=== PATIENT | female | born 1960 | race Caucasian/White ===

== ENCOUNTER 2023-07-07 16:29 | Outpatient (RCR) | payer BC, SELFPAY | END 2023-07-21 17:18 | disposition home or self-care (01) | LOC: PT 16:29 | PROVIDERS: PCP Family Medicine; Visit Provider Nurse Practitioner Family | DX: M48.062 Spinal stenosis, lumbar region with neurogenic claudication (principal) | CPT/HCPCS: 97012; 97110; 97163 ==

== ENCOUNTER 2023-07-13 13:00 | Outpatient (OUT) | payer BC, SELFPAY ==
--- NOTE | 2023-07-13 15:59 | PM.CN ---
Consult Note: HPI Data of Consult Patient: new to practice Consult date: 07/13/23 Requesting Physician: Nancy Barrera MD Primary Care Provider: ANA CHOI Consult Narrative Reason for consult: neck, low back, bilateral lower extremity, left knee pain Narrative: 62yof who presents for evaluation. worsening pain in multiple areas, including neck, low back, bilateral legs, left knee. lumbar imaging was reviewed, which is significant for multiple levels of stenosis, worst at l4-5 and l5-s1. has had left knee injections that have helped previously, has been told she needs this replaced. also notes increasing neck and bilateral hand pain. engages in provider directed home exercise course >6 weeks >3x/week, with minimal benefit. uses tylenol and ibuprofen as needed. cc:: CC: Nancy Barrera MD Review of Systems ROS Status of ROS 10 or more systems reviewed and unremarkable except as noted in history and below Exam Narrative Exam Narrative: Psych-alert and oriented x 3. Attentive and appropriate, constitutionally normal, displays normal mood and affect per situation. There are no obvious deficits in memory, reasoning, or intellect.? Skin-no obvious rashes, bruising, erythema noted to the patient's area of pain.? Extremities- extremities are warm with minimal edema and palpable pulses. Cervical- tenderness to palpation noted in the cervical spine and paraspinal musculature.? Pain is elicited with extension, and lateral rotation of the cervical spine.? Range of motion is slightly diminished due to pain. Facet loading maneuvers are positive bilaterally. Lumbar-tenderness to palpation noted in the lumbar spine and paraspinal musculature. Pain is elicited with flexion, extension, and lateral rotation of the lumbar spine. Range of motion is diminished with these motions. Facet loading maneuvers are positive.? Strength-noted to be unremarkable with the exception of decreased strength rated at 4 out of 5 in bilateral quadriceps femoris, anterior tibialis. Sensory-no notable sensory deficits in the bilateral lower extremities to touch or pinprick in all dermatomal distributions with the exception to decreased sensation to the bilateral l4, 5 dermatomal distribution Coordination remains intact.? Gait remains non-antalgic. Assessment and Plan Assessment and Plan (1) Lumbar stenosis with neurogenic claudication: (2) Lumbar spondylosis: (3) Left knee pain: (4) Cervicalgia: Plan 62yof who presents for evaluation. failed conservative measures, as noted. imaging reviewed, as noted. in terms of back and leg pain, prudent to attempt bilateral l4-5 tfesi under fluoroscopic guidance. depending on response, may benefit from bilateral l5-s1 tfesi under fluoroscopic guidance. she is in agreement. in terms of left knee pain, will have her undergo left knee xr and return for in office left knee injection, which has provided >3 months of >50% relief previously. she is in agreement. in terms of neck pain, will order cervical XR. meds reviewed. will order ibuprofen 800mg tid prn, which has helped historically. PDMP reviewed. follow up after procedure.
== END 2023-07-13 13:01 | disposition home or self-care (01) ==
LOC: PM 13:13
PROVIDERS: PCP Family Medicine; Visit Provider Anesthesiology
DX: M54.2 Cervicalgia (principal); M25.562 Pain in left knee; M47.816 Spondylosis without myelopathy or radiculopathy, lumbar region; M48.062 Spinal stenosis, lumbar region with neurogenic claudication; M47.812 Spondylosis without myelopathy or radiculopathy, cervical region
CPT/HCPCS: 72050; 73564; G0463

== ENCOUNTER 2023-07-13 14:11 | Outpatient (OUT) | payer BC, SELFPAY ==
--- NOTE | 2023-07-13 14:17 | XR_ITS ---
The [address] [address] Patient Name: ANALIA SANCHEZ MRN: [id number] date: 1960 Sex: F Assigned Patient Location: [facility] Current Patient Location: [facility] Accession/Order Number: [id number] Exam Date: 07/13/2023 14:25 Report Date: 07/14/2023 07:25 At the request of: MONI JANG Procedure: XR cervical spine 5V EXAM: XR cervical spine 5V HISTORY: Neck Pain COMPARISON: None. TECHNIQUE: Routine views of the XR cervical spine 5V FINDINGS: Anatomy: There are 7 nyf-[id number]-[id number] cervical segments. Bones: No acute fracture or dislocation. No suspicious lytic or sclerotic lesion. Moderate to severe C3-C6 disc and endplate degeneration. Mild multilevel facet hypertrophy. Suggested bilateral C3-C5 neural foraminal narrowing. Normal atlantoaxial alignment. Other: Left carotid atherosclerosis. XR/XR cervical spine 5V IMPRESSION: Multilevel cervical spondylosis without acute findings. Electronically authenticated by: SALEEM DOYLE Date: 07/14/2023 07:25
--- NOTE | 2023-07-13 14:17 | XR_ITS ---
The [address] [address] Patient Name: ANALIA SANCHEZ MRN: [id number] date: 1960 Sex: F Assigned Patient Location: [facility] Current Patient Location: [facility] Accession/Order Number: [id number] Exam Date: 07/13/2023 14:25 Report Date: 07/13/2023 18:26 At the request of: MONI JANG Procedure: XR knee LT 4V EXAM: Left knee. HISTORY: . Knee Pain . COMPARISON: None. TECHNIQUE: 4 views FINDINGS: No fracture or dislocation of the left knee is noted. There is narrowing of the medial joint compartment. Hypertrophic spurs are noted involving the knee joint as well as the patellofemoral joint. No joint effusion is noted. XR/XR knee LT 4V IMPRESSION: Mild to moderate osteoarthritic changes of the left knee. Electronically authenticated by: DARIAN UREÑA Date: 07/13/2023 18:26
== END 2023-07-13 14:12 | disposition home or self-care (01) ==
LOC: RAD 14:12
PROVIDERS: PCP Family Medicine; Visit Provider Anesthesiology
DX: M54.2 Cervicalgia (principal); M25.562 Pain in left knee; M47.812 Spondylosis without myelopathy or radiculopathy, cervical region
CPT/HCPCS: 72050; 73564

== ENCOUNTER 2023-08-10 08:53 | Day surgery (SDC) | payer BC, SELFPAY ==
[2023-08-10 09:39] VITALS: BP 154/91; PULSE 79; RESP 16; TEMP 36.7; O2SAT 96
[2023-08-10] MEDS: IOHEXOL 240 MG/ML - 10 ML VIAL INJ (10:23)
[2023-08-10] MEDS: BUPIVACAINE HCL 0.25% PF 25 MG/10 ML VIAL INJ (10:23)
[2023-08-10] MEDS: LIDOCAINE HCL 2% PF 100 MG/5 ML VIAL INJ (10:23)
[2023-08-10 10:24] VITALS: BP 178/84; BP 182/83; PULSE 68; PULSE 79; RESP 18; O2SAT 94; O2SAT 95
--- NOTE | 2023-08-10 10:26 | W.PM.PROCNOT ---
Date of procedure: 08/10/23 Pre-op diagnosis: Lumbar stenosis with neurogenic claudication Procedure: Procedure: Bilateral L4-5 transforaminal epidural steroid injection Medications: Bupivacaine 0.25% 2cc, lidocaine 2% 1cc, kenalog 80mg The patient was seen and examined in the preoperative holding area.? Informed consent was obtained and placed on the chart.? Patient was brought to the medical procedure unit and placed in the prone position where a timeout was completed verifying the correct patient, procedure site, position, and planned special equipment using sterile aseptic technique.? Under direct fluoroscopic visualization a 25-gauge Quincke tipped spinal needle was advanced at level left L4-5 to the designated neural foramen where contrast dye was injected to show adequate spread.? There was no evidence of vascular or adverse uptake.? Epidural spread was appreciated.? The above-mentioned injectate was then placed in a 1.5 mL aliquot preceded by negative aspiration.? The needle was removed. The same procedure, at the same level, was completed on the opposite side. ? Patient was taken to the postprocedural recovery area and monitored for an appropriate length of time before found suitable for discharge in the accompaniment of a responsible adult. Anesthesia: Local Surgeon: Nancy Barrera Pathology: none sent Condition: stable Disposition: no change
== END 2023-08-10 10:30 | disposition home or self-care (01) ==
PROVIDERS: PCP Family Medicine; Visit Provider Anesthesiology
DX: M48.062 Spinal stenosis, lumbar region with neurogenic claudication (principal)
CPT/HCPCS: 64483; Q9966

== ENCOUNTER 2023-08-24 07:05 | Day surgery (SDC) | payer BC, SELFPAY ==
[2023-08-24 07:27] VITALS: PULSE 82; RESP 16; TEMP 36.2; O2SAT 97
[2023-08-24 08:09] VITALS: BP 207/97; PULSE 59; RESP 18; O2SAT 92
[2023-08-24 08:12] VITALS: BP 206/98; PULSE 64; RESP 18; O2SAT 94
--- NOTE | 2023-08-24 08:13 | W.PM.PROCNOT ---
Date of procedure: 08/24/23 Pre-op diagnosis: Lumbar stenosis with neurogenic claudication Post-op diagnosis: same as pre-op Procedure: Procedure: Bilateral L5-S1 transforaminal epidural steroid injection Medications: Bupivacaine 0.25% 2cc, lidocaine 2% 1cc, kenalog 80mg The patient was seen and examined in the preoperative holding area.? Informed consent was obtained and placed on the chart.? Patient was brought to the medical procedure unit and placed in the prone position where a timeout was completed verifying the correct patient, procedure site, position, and planned special equipment using sterile aseptic technique.? Under direct fluoroscopic visualization a 25-gauge Quincke tipped spinal needle was advanced at level left L5-S1 to the designated neural foramen where contrast dye was injected to show adequate spread.? There was no evidence of vascular or adverse uptake.? Epidural spread was appreciated.? The above-mentioned injectate was then placed in a 1.5 mL aliquot preceded by negative aspiration.? The needle was removed. The same procedure, at the same level, was completed on the opposite side. ? Patient was taken to the postprocedural recovery area and monitored for an appropriate length of time before found suitable for discharge in the accompaniment of a responsible adult. Anesthesia: Local Surgeon: Nancy Barrera Pathology: none sent Condition: stable Disposition: no change
[2023-08-24] MEDS: 0.9 % SODIUM CHLORIDE 10 ML INJ (08:14)
[2023-08-24] MEDS: BUPIVACAINE HCL 0.25% PF 25 MG/10 ML VIAL INJ (08:14)
[2023-08-24] MEDS: IOHEXOL 240 MG/ML - 10 ML VIAL 12 MG INJ (08:14)
[2023-08-24] MEDS: LIDOCAINE HCL 2% PF 100 MG/5 ML VIAL 3 ML INJ (08:15)
[2023-08-24] MEDS: TRIAMCINOLONE ACETONIDE 40 MG/ML VIAL 80 MG INJ (08:15)
== END 2023-08-24 08:18 | disposition home or self-care (01) ==
PROVIDERS: PCP Family Medicine; Visit Provider Anesthesiology
DX: M48.062 Spinal stenosis, lumbar region with neurogenic claudication (principal)
CPT/HCPCS: 64483; Q9966

== ENCOUNTER 2023-10-04 20:11 | Emergency (ER) | payer BC, SELFPAY ==
[2023-10-04] VITALS (27 sets, daily range): BP systolic 143–184; BP diastolic 68–112; PULSE 65–99; RESP 14–29; TEMP 36.6; O2SAT 96–98; BMI 39.1
--- OUTSIDE RECORDS SUMMARY | 2023-10-04 20:18 | XMS_ITS | CCD ---
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 Name Role Phone CRISTINO CRUZ Admitting Unavailable CRISTINO CRUZ Attending Unavailable CRISTINO CRUZ Consulting Unavailable AARON GONZÁLES Consulting Unavailable FELECIA Dunbar Attending Provider MD Rosemarie Ojeda Primary Care Provider Linda Dunbar Unavailable Holly SAMANIEGO, Nancy Cortez Attending Unavailable Holly SAMANIEGO, Nancy Cortez Attending Unavailable Holly SAMANIEGO, Nancy Cortez Attending Unavailable ROSEMARIE OJEDA Attending Unavailable DEVIKA LIRA Attending Unavailable DEVIKA LIRA Referring Unavailable FELECIA Dunbar Attending Provider MD Rosemarie Ojeda Primary Care Provider MD Hossein Ivey Attending Provider [phone] Linda Dunbar Admitting Unavailable Linda Dunbar Attending Unavailable Rosemarie Ojeda Primary Care Unavailable Hossein Ivey Attending Unavailable Rosemarie Oj[facility] Unavailable Hossein Ivey Admitting Unavailable Allergies Allergy Classification Reported Allergen(s) Allergy Type Date of Onset Reaction(s) Facility (1 source) Desonide Drug Allergy [facility] Repository (3 sources) armodafinil Drug Allergy felt high, like a zoTunepresto Other (3 sources) Adhesive Bandages Propensity to adverse reactions Unknown [employer] Other Medications Current Medications Medication Drug Class(es) Dates Sig (Normalized) Sig (Original) acetaminophen 500 mg oral tablet (3 sources) take 1 tablet by mouth every six hours Acetaminophen 500 MG 1 tablet as needed Orally every 6 hrs Active DULoxetine 60 mg delayed release oral capsule (3 sources) Serotonin and Norepinephrine Reuptake Inhibitor Cymbalta 60 MG 2 capsule Once a day Orally 30 day(s) Orally Once a day for 90 days Active 24 hr felodipine 5 mg extended release oral tablet (3 sources) Dihydropyridine Calcium Channel Ranjan take 1 tablet by mouth every twenty-four hours Felodipine ER 5 MG 1 tablet Orally Once a day Active ibuprofen 800 mg oral tablet (6 sources) Nonsteroidal Anti-inflammatory Drug take 1 tablet by mouth three times daily at mealtime Ibuprofen 800 MG TAKE 1 TABLET BY MOUTH THREE TIMES DAILY WITH FOOD OR MILK for 30 Active losartan potassium 100 mg oral tablet (3 sources) Angiotensin 2 Receptor Ranjan take 1 tablet by mouth every twenty-four hours Losartan Potassium 100 MG 1 tablet Orally Once a day for 30 days Active pantoprazole 40 mg delayed release oral tablet (3 sources) Proton Pump Inhibitor take 1 tablet by mouth every twenty-four hours Pantoprazole Sodium 40 MG 1 tablet Orally Once a day Active propranolol hydrochloride 10 mg oral tablet (3 sources) beta-Adrenergic Ranjan take 1 tablet by mouth every twenty-four hours Propranolol HCl 10 MG 1 tablet Orally Once a day Active rOPINIRole 2 mg oral tablet (3 sources) Nonergot Dopamine Agonist take 1 tablet by mouth at bedtime rOPINIRole HCl 2 MG TAKE 1 TABLET BY MOUTH AT BEDTIME for 90 Active tiZANidine 4 mg oral tablet (3 sources) Central alpha-2 Adrenergic Agonist take 1 tablet by mouth every eight hours tiZANidine HCl 4 MG 1 tablet as needed Orally Three times a day Active Completed/Discontinued Medications Medication Drug Class(es) Dates Sig (Normalized) Sig (Original) Acetaminophen / HYDROcodone (3 sources) Opioid Agonist take 1 tablet by mouth every six hours as needed Vicodin 5-500 MG 1 tablet as needed Orally every 6 hrs *please review for potential _update for e-prescription and drug interaction check* Not-Taking/PRN take 1 tablet by mouth every six hours as needed ascorbic acid 500 mg oral ca psule (1 source) Vitamin C Vitamin C 500 MG Orally Not-Taking/PRN biotin 1 mg oral capsule (3 sources) Biotin 1 MG Oral ly Not-Taking/PRN cephalexin 500 mg oral tablet (6 sources) Cephalosporin Antibacterial Start: 05-19-2019 take 1 capsule by mouth four times daily as needed Keflex 500 MG 1 capsule Orally QID for 7 day(s) May, Not-Taking/PRN cetirizine hydrochloride 10 mg oral tablet (3 sources) Histamine-1 Receptor Antagonist Start: 01-23-2020 take 1 tablet by mouth every twenty-four hours Cetirizine HCl 10 MG 1 tablet Orally Once a day for 30 day(s) January, Not-Taking/PRN clonazePAM 0.5 mg oral tablet (3 sources) Benzodiazepine take 1 tablet by mouth every eight hours KlonoPIN 0.5 MG 1 tablet Orally 3 times a day for 90 days Not-Taking/PRN CPAP Machine 1 (3 sources) CPAP Machine 1 1 use nightly for 12 months *please review for potential _update for e-prescription and drug interaction check* Not-Taking/PRN CPAP Machine 1 1 use nightly for 12 months *please review for potential _update for e-prescription and drug interaction check* Not-Taking CPAP supplies misc (3 sources) CPAP supplies [place] 1 wear nightly for 12 months *please review for potential _update for e-prescription and drug interaction check* Not-Taking/PRN CPAP supplies [place] 1 wear nightly for 12 months *please review for potential _update for e-prescription and drug interaction check* Not-Taking 24 hr dexmethylphenidate hydrochloride 40 mg extended release oral capsule (3 sources) Central Nervous System Stimulant Start: 12-27-2014 take 1 capsule by mouth every twenty-four hours Focalin XR 40 MG 1 capsule Orally Once a day for 90 days Dec, Not-Taking/PRN FLUoxetine 40 mg oral capsule (6 sources) Serotonin Reuptake Inhibitor FLUoxetine HCl 40 MG Oral for 90 Not-Taking/PRN fluticasone propionate 0.05 mg/actuat metered dose nasal spray (3 sources) Corticosteroid Start: 01-23-2020 take 1 spray(s) nasal route once daily as needed Fluticasone Propionate 50 MCG/ACT 1 spray in each nostril Nasally Once a day for 30 day(s) January, Not-Taking/PRN Start: 01-23-2020 take 1 spray(s) nasa l route once daily Fluticasone Propionate 50 MCG/ACT 1 spray in each nostril Nasally Once a day for 30 day(s) January, Not-Taking gabapentin 100 mg oral capsule (3 sources) Anti-epileptic Agent Start: 02-15-2020 take 1 capsule by mouth at bedtime Gabapentin 100 MG 1 capsule Orally at bedtime for 30 day(s) Feb, Not-Taking/PRN hydroCHLOROthiazide 12.5 mg / losartan potassium 50 mg oral tablet (3 sources) Thiazide Diuretic, Angiotensin 2 Receptor Ranjan Start: 08-28-2016 take 2 tablets by mouth every twenty-four hours Hyzaar 50-12.5 MG 2 tablet Orally Once a day for 90 days Aug, Not-Taking/PRN Iron (3 sources) Iron 1 tab Oral *please review for potential _update for e-prescription and drug interaction check* Not-Taking/PRN Iron 1 tab Oral *please review for potential _update for e-prescription and drug interaction check* Not-Taking Knee Brace - (3 sources) Knee Brace - as directed *please review for potential _update for e-prescription and drug interaction check* Not-Taking/PRN Knee Brace - as directed *please review for potential _update for e- prescription and drug interaction check* Not-Taking lamoTRIgine 200 mg oral tablet (3 sources) Mood Stabilizer, Anti-epileptic Agent take 1 tablet by mouth every twenty-four hours LaMICtal 200 MG 1 tablet Orally daily Not-Taking/PRN lisinopril 20 mg oral tablet (3 sources) Angiotensin Converting Enzyme Inhibitor Start: 016 take 1 tablet by mouth every twenty-four hours Lisinopril 20 MG 1 tablet Orally Once a day for 90 days needs refill Feb, Not-Taking/PRN Multivitamin preparation (3 sources) Multivitamin Ora lly daily *please review for potential _update for e-prescription and drug interaction check* Not-Taking/PRN Multivitamin Ora lly daily *please review for potential _update for e- prescription and drug interaction check* Not-Taking potassium 75 mg oral tablet (3 sources) take 1 tablet by makenna th once daily as needed Potassium 75 MG 1 tablet Orally Once a day *please review for potential _update for e-prescription and drug interaction check* Not-Taking/PRN Thrive For Life Womens (3 sources) Thrive For Life Womens Orally *please review for potential _update for e-prescription and drug interaction check* Not-Taking/PRN traZODone hydrochloride 150 mg oral tablet (3 sources) Serotonin Reuptake Inhibitor take 2 tablets by mouth once daily at bedtime traZODone HCl 150 MG 2 tablets Oral qhs Not-Taking/PRN Turmeric Curcumin (3 sources) Turmeric Curcumi n *please review for potential _update for e-prescription and drug interaction check* Not-Taking/PRN Turmeric Curcumi n *please review for potential _update for e-prescription and drug interaction check* Not-Taking vilazodone hydrochloride 40 mg oral tablet (3 sources) take 1 tablet by makenna th every twenty-four hours Viibryd 40 MG 1 tablet Orally Once a day for 30 days Not-Taking/PRN Vitamin B Complex (3 sources) Vitamin B Comple x - Orally Not-Taking/PRN Vitamin B Comple x - Orally Not-Taking Vitamin C 500 MG (2 sources) Vitamin C 500 MG Orally Not-Taking Vitamin D 1000 UNIT (3 sources) take 1 tablet by makenna th once daily as needed Vitamin D 1000 UNIT 1 tablet Orally Once a day *please review for potential _update for e-prescription and drug interaction check* Not-Taking/PRN take 1 tablet by mouth once oziel y Vitamin D 1000 UNIT 1 tablet Orally Once a day *please review for potential _update for e-prescription and drug interaction check* Not-Taking Wrist Splint/Cock-Up/Left L - (3 sources) Wrist Splint/Donna k-Up/Left L - as directed *please review for potential _update for e-prescription and drug interaction check* Not-Taking/PRN Wrist Splint/Donna k-Up/Left L - as directed *please review for potential _update for e-prescription and drug interaction check* Not-Taking Wrist Splint/Cock-Up/Right L - (3 sources) Start: 04-06-2017 Wrist Splint/C ock-Up/Right L - as directed *please review for potential _update for e-prescription and drug interaction check* Mar, Not-Taking/PRN Start: 04-06-2017 Wrist Splint/C ock-Up/Right L - as directed *please review for potential _update for e-prescription and drug interaction check* Mar, Not-Taking Problems Problem Classification Problem Date Documented Date Episodic/Chronic Anxiety disorders (3 sources) Generalized anxiety disorder; Translations: [Generalized anxiety disorder] Chronic Asthma (3 sources) Asthmatic bronchitis; Translations: [Unspecified asthma, uncomplicated] Chronic Deficiency and other anemia (3 sources) Iron deficiency anemia due to blood loss; Translations: [Iron deficiency anemia secondary to blood loss (chronic)] Chronic Diverticulosis and diverticulitis (1 source) Diverticulosis of large intestine without perforation or abscess without bleeding; Translations: [DVRTCLOS LG INT NO PERF/ABSC W/O BL] Onset: 01-16-2023 Chronic Esophageal disorders (3 sources) Gastroesophageal reflux disease without esophagitis; Translations: [Gastro-esophageal reflux disease without esophagitis] Chronic Essential hypertension (3 sources) Benign essential hypertension; Translations: [Essential (primary) hypertension] Chronic Inflammatory diseases of female pelvic organs (3 sources) Chronic vaginitis; Translations: [Subacute and chronic vaginitis] Episodic Malaise and fatigue (3 sources) Fatigue; Translations: [Chronic fatigue, unspecified] Chronic Malaise and fatigue (3 sources) Fatigue; Translations: [Other fatigue] Episodic Mood disorders (6 sources) Mild recurrent major depression; Translations: [Major depressive disorder, recurrent, mild] Chronic Other connective tissue disease (3 sources) Fibromyalgia; Translations: [Fibromyalgia] Episodic Other endocrine disorders (1 source) Other specified disorders of adrenal gland; Translations: [OTHER SPEC DISORDERS ADRENAL GLAND] Onset: 01-16-2023 Chronic Other hereditary and degenerative nervous system conditions (3 sources) Restless legs; Translations: [Restless legs syndrome] Chronic Other nervous system disorders (3 sources) Bilateral carpal tunnel syndrome; Translations: [Carpal tunnel syndrome, bilateral upper limbs] Chronic Other non-traumatic joint disorders (3 sources) Hip pain; Translations: [Pain in unspecified hip] Episodic Other non-traumatic joint disorders (1 source) Pain in unspecified joint; Translations: [Pain in unspecified joint] Onset: 09-14-2023 Episodic Residual codes; unclassified (3 sources) Obstructive sleep apnea syndrome; Translations: [Obstructive sleep apnea (adult) (pediatric)] Chronic Residual codes; unclassified (3 sources) Menopause present; Translations: [Asymptomatic menopausal state] Episodic Residual codes; unclassified (3 sources) Amnesia; Translations: [Other amnesia] Episodic Residual codes; unclassified (1 source) Asymptomatic menopausal state Episodic Spondylosis; intervertebral disc disorders; other back problems (10 sources) Other dorsalgia; Translations: [Backache] Onset: 01-14-2023 Episodic Substance-related disorders (1 source) Nicotine dependence, cigarettes, uncomplicated; Translations: [NICOTINE DEPEND CIGARETTES UNCOMP] Onset: 01-16-2023 Chronic Unclassified (1 source) LOW BACK PAIN, UNSPECIFIED; Translations: [LOW BACK PAIN, UNSPECIFIED] Onset: 01-16-2023 Unclassified (1 source) Low back pain, unspecified; Translations: [Low back pain, unspecified] Onset: 06-18-2023 Urinary tract infections (3 sources) Urinary tract infectious disease; Translations: [Urinary tract infection, site not specified] Episodic Results Test Name Value Interpretation Reference Range Facility K[facility]ILAH Antinuclear Antibodieson 09-14-2023 Antinuclear Abs, IFA Negative Normal . [facility] Comment on above: Result Comment: Nega tive <1:80 Borderline 1:80 Positive >1:80 ICAP nomenclature: AC-0 For more information about Hep-2 cell patterns use ANApatterns.org, the official website for the International Consensus on Antinuclear Antibody (KAMILAH) Patterns (ICAP). Performed at: - [facility] [place] [id number] Local Sales Manager: Shaun Gomes PhD, Phone: [phone] Performed By: #### S SA SSB, KAMILAH #### [facility] , #### CK #### [place] [id number] [place] Creatine Kinaseon 09-14-2023 CK [Catalytic activity/Vol] 121 U/L Normal 30-223 [facility] Comment on above: Result Comment: PERF ORMED BY: [place] [address] PATHOLOGIST TABLEAU REPORT DEVELOPER RIAN KIRBY M.D. Performed By: #### S SA SSB, KAMILAH #### [facility] , #### CK #### [place] [address] [place] Creatine kinase [Enzymatic a ctivity/volume] in Serum or PlasmaOrdered By: Hossein Ivey on 09-14-2023 CK [Catalytic activity/Vol] 121 U/L 30-223 [facility] SS-A/Ro Sjogrens Antibodyon 09-14-2023 SS-A/Ro Sjogrens Antibody <0.2 Normal 0.0-0.9 [facility] Comment on above: Performed By: #### S SA, SSB, KAMILAH #### [facility] , #### CK #### [facility] [address] [place] [address] SS-B/La Sjogrens Antibodyon 09-14-2023 SS-B/La Sjogrens Antibody <0.2 Normal 0.0-0.9 [facility] Comment on above: Result Comment: Perf ormed at: - [facility] [address] [id number] Local Sales Manager: Shaun Gomes PhD, Phone: [phone] PERFORMED BY: [place] [address] PATHOLOGIST TABLEAU REPORT DEVELOPER RIAN KIRBY M.D. Performed By: #### S SA, SSB, KAMILAH #### [facility] , #### CK #### [address] XR lumbar spine 6V w bending on 06-18-2023 XR lumbar spine 6V w bending [facility] [place] [address] [place] [address] XRay Report Signed Patient: Viri Weber MR#: [id number] : 1960 Acct:[id number] Age/Sex: 62 / F ADM Date: 06/18/23 Loc: XD Room: Type: [facility] Attending Dr: Linda IZQUIERDO Copies to: FELECIA Hicks Ordering Provider: FELECIA Hicks Date of Service: 06/18/23 XR/XR lumbar spine 6V w bending: M54.50 LUMBAR SPINE - 6 views CLINICAL HISTORY: Low back pain. COMPARISON: Lumbar spine 02/19/2021 FINDINGS: Scoliosis which has progressed since the 2020 study. Vertebral body heights appear maintained. Scattered endplate and facet joint degenerative changes with diffuse moderate degenerative disc disease which has also progressed since 2020. SI joints demonstrate mild sclerosis. Restricted right-sided sidebending. No pathological motion on flexion or extension views. XR/XR lumbar spine 6V w bending IMPRESSION: INTERVAL WORSENING OF THE PATIENT'S DIFFUSE DEGENERATIVE DISC DISEASE AND SCOLIOSIS WITH COMPARED TO THE 2020 STUDY. Impression dictated by: Sage Reza Jr., DMaribel06/18/2023 9:48 AM Dictation Location: [place] [address] Transcribed By: [facility] 06/18/23947 Dictated By: Sage Reza Jr DO 06/18/23946 Signed By: 06/18/23947 [facility] CBC AUTO DIFFon 01-14-2023 BASO # 0.1 103/ul Normal 0.0-0.1 [facility] Comment on above: Performed By: #### C BC #### [facility] [address] [place] [address] Dr. Rocío Cabrera Basophils/100 WBC (Bld) 0.7 % Normal 0.2-2.0 [facility] Comment on above: Performed By: #### C BC #### [facility] [address] [place] [address] Dr. Rocío Cabrera EO # 0.4 103/ul Normal 0.0-0.7 [facility] Comment on above: Performed By: #### C BC #### [facility] [address] [place] [address] Dr. Rocío Cabrera Eosinophils/100 WBC (Bld) 3.3 % Normal 0.9-7.0 [facility] Comment on above: Performed By: #### C BC #### [facility] [address] [place] [address] Dr. Rocío Cabrera Erythrocyte distribution width (RBC) [Ratio] 13.1 % Normal 11.0-15.0 [facility] Comment on above: Performed By: #### C BC #### [facility] [address] [place] [address] Dr. Rocío Cabrera Hematocrit (Bld) [Volume fraction] 34.3 % Critically low 36.0-48.0 [facility] Comment on above: Performed By: #### C BC #### [facility] [address] [place] [address] Dr. Rocío Cabrera Hemoglobin (Bld) [Mass/Vol] 11.5 g/dL Critically low 12.0-16.0 [facility] Comment on above: Performed By: #### C BC #### [facility] [address] [place] [address] Dr. Rocío Cabrera IG # 0.04 10e3/ul Critically high 0.00-0.03 [facility] Comment on above: Performed By: #### C BC #### [facility] [address] [place] [address] Dr. Rocío Cabrera IG % 0.4 % Normal 0.0-0.5 [facility] Comment on above: Performed By: #### C BC #### [facility] [address] [place] [address] Dr. Rocío Cabrera LYMPH # 2.0 103/ul Normal 1.2-3.8 [facility] Comment on above: Performed By: #### C BC #### [facility] [address] [place] [address] Dr. Rocío Cabrera Lymphocytes/100 WBC (Bld) 18.2 % Critically low 20.5-60.0 [facility] Comment on above: Performed By: #### C BC #### [facility] [address] [place] [address] Dr. Rocío Cabrera MANUAL DIFF REQ NO Normal [facility] Comment on above: Performed By: #### C BC #### [facility] [address] [place] [address] Dr. Rocío Cabrera MCH (RBC) [Entitic mass] 29.0 pg Normal 26.7-34.0 [facility] Comment on above: Performed By: #### C BC #### [facility] [address] [place] [address] Dr. Rocío Cabrera MCHC (RBC) [Mass/Vol] 33.5 g/dL Normal 29.9-35.2 [facility] Comment on above: Performed By: #### C BC #### [facility] [address] [place] [address] Dr. Rocío Cabrera MCV (RBC) [Entitic vol] 86.6 fL Normal 81.0-99.0 [facility] Comment on above: Performed By: #### C BC #### [facility] [address] [place] [address] Dr. Rocío Cabrera MONO # 0.7 103/ul Normal 0.3-0.8 [facility] Comment on above: Performed By: #### C BC #### [facility] [address] [place] [address] Dr. Rocío Cabrera Monocytes/100 WBC (Bld) 6.9 % Normal 1.7-12.0 [facility] Comment on above: Performed By: #### C BC #### [facility] [address] [place] [address] Dr. Rocío Cabrera NEUT # 7.6 103/ul Critically high 1.4-6.5 [facility] Comment on above: Performed By: #### C BC #### [facility] [address] [place] [address] Dr. Rocío Cabrera Neutrophils/100 WBC (Bld) 70.5 % Normal 43.0-75.0 [facility] Comment on above: Performed By: #### C BC #### [facility] [address] [place] [address] Dr. Rocío Cabrera Platelet mean volume (Bld) [Entitic vol] 8.5 fL Critically low 9.5-13.5 [facility] Comment on above: Performed By: #### C BC #### [facility] [address] [place] [address] Dr. Rocío Cabrera PLT 352 103/ul Normal 150-450 [facility] Comment on above: Performed By: #### C BC #### [facility] [address] [place] [address] Dr. Rocío Cabrera RBC 3.96 106/ul Critically low 4.20-5.40 [facility] Comment on above: Performed By: #### C BC #### [facility] [address] [place], [place] [address] Dr. Rocío Cabrera WBC 10.7 103/ul Normal 4.0-11.0 [facility] Comment on above: Performed By: #### C BC #### [facility] [address] [place], [place] [address] [address] ABD/PELVIS WO CONon 01-14 CT ABD/PELVIS WO CON CT ABD/PELVIS WO CON: 01/14/2023 3:00 AM EDT CLINICAL HISTORY: 62 years old Female with CALCULUS OF KIDNEY. TECHNIQUE: Axial CT images through the abdomen and pelvis are obtained without the intravenous administration of contrast. Coronal and sagittal reformations are also obtained. Dose reduction techniques were achieved by using automated exposure control and/or adjustment of mA and/or kV according to patient size and/or use of iterative reconstruction technique. COMPARISON: None available. FINDINGS: The lung bases are clear with no dependent infiltrate or effusion. Without the use of IV or oral contrast the study is limited by incomplete evaluation of the blood vessels, solid visceral organs and bowel. The liver, spleen, pancreas and right adrenal gland are unremarkable. Attenuating thickening of the left adrenal gland is present. The bilateral kidneys are unremarkable with no renal calculi or hydronephrosis. The bilateral ureters demonstrate no gross abnormality or obstruction. The stomach and small bowel are unremarkable. The appendix is visualized without inflammatory change. Fecal stasis of the colon is present as well as multiple diverticula of the left colon without focal inflammatory change. The bladder appears unremarkable. There is no evidence of aortic aneurysm. No enlarged lymph nodes are seen. No free air or free fluid is seen. The uterus and adnexa are within normal limits. 6 lumbar type vertebral body segments are present representing anatomic variant with fusion of the right transverse process with the sacrum at L6. Discogenic degenerative change of the spine with vacuum disc phenomena L2-L4 and L5-L6 with vacuum disc phenomena with severe neural foraminal narrowings present. No acute compression fracture deformity or suspicious osseous abnormality. IMPRESSION: 1. No renal or ureteral calculi bilaterally and no hydronephrosis. 2. Diverticulosis without diverticulitis. Mild fecal stasis. 3. Left adrenal hyperplasia. 4. Discogenic degenerative change of the spine with severe neural foraminal narrowings L3-L4 and L5-6. Electronically authenticated by: AARON GONZÁLES Date: 2023-01-14 04:43 Normal [facility] ER URINE PROFILEon 3 Bilirubin Ql (U) Negative Normal NEGATIVE [facility] Comment on above: Performed By: #### E RUR #### [facility] [address] [place] [address] Dr. Rocío Cabrera Clarity (U) CLEAR Normal CLEAR [facility] Comment on above: Performed By: #### E RUR #### [facility] [address] [place] [address] Dr. Rocío Cabrera Color (U) LT. YELLOW Normal YELLOW [facility] Comment on above: Performed By: #### E RUR #### [facility] [address] [place] [address] Dr. Rocío VICK A micrscopic examination will be performed if indicated. Normal [facility] Comment on above: Performed By: #### E RUR #### [facility] [address] [place] [address] Dr. Rocío Cabrera Glucose Ql (U) Negative Normal NEGATIVE [facility] Comment on above: Performed By: #### E RUR #### [facility] [address] [place] [address] Dr. Rocío Cabrera Hemoglobin Ql (U) Negative Normal NEGATIVE [facility] Comment on above: Performed By: #### E RUR #### [facility] [address] [place] [address] Dr. Rocío Cabrera Ketones Ql (U) Negative Normal NEGATIVE [facility] Comment on above: Performed By: #### E RUR #### [facility] [address] [place] [address] Dr. Rocío Cabrera LEUKOCYTES Negative Normal NEGATIVE [facility] Comment on above: Performed By: #### E RUR #### [facility] [address] [place] [address] Dr. Rocío Cabrera Nitrite Ql (U) Negative Normal NEGATIVE [facility] Comment on above: Performed By: #### E RUR #### [facility] [address] [place] [address] Dr. Rocío Cabrera pH (U) 5.5 [pH] Normal 5-9 [facility] Comment on above: Performed By: #### E RUR #### [facility] [address] [place] [address] Dr. Rocío Cabrera SPEC GRAVITY 1.010 Normal 1.005-<=1.025 [facility] Comment on above: Performed By: #### E RUR #### [facility] [address] [place] [address] Dr. Rocío Cabrera UA PROTEIN Negative Normal NEGATIVE/ TRACE [facility] Comment on above: Performed By: #### E RUR #### [facility] [address] [place] [address] Dr. Rocío Cabrera UR MICRO IND NOT INDICATED Normal [facility] Comment on above: Performed By: #### E RUR #### [facility] [address] [place] [address] Dr. Rocío Cabrera Urobilinogen Qn (U) 0.2 {Torsten'U}/dL Normal 0.2 - 1. 0 [facility] Comment on above: Performed By: #### E RUR #### [facility] [address] [place] [address] Dr. Rocío Cabrera PROF CHEM 8 (BAS METB)on Anion gap [Moles/Vol] 10.6 mmol/L Normal [facility] Comment on above: Performed By: #### B MP #### [facility] [address] [place] [address] Dr. Rocío Cabrera Calcium [Mass/Vol] 8.4 mg/dL Critically low 8.5-10.1 [facility] Comment on above: Performed By: #### B MP #### [facility] [address] [place] [address] Dr. Rocío Cabrera Chloride [Moles/Vol] 99 mmol/L Normal 98-107 [facility] Comment on above: Performed By: #### B MP #### [facility] [address] [address] [address] Rocío Cabrera CO2 [Moles/Vol] 26.2 mmol/L Normal 21.0-32.0 [facility] Comment on above: Performed By: #### B MP #### [facility] [address] [address] [address] Rocío Cabrera Creatinine [Mass/Vol] 0.77 mg/dL Normal 0.55-1.02 [facility] Comment on above: Performed By: #### B MP #### [facility] [address] [address] [address] Rocío Cabrera EGFR-AF STATELESS >60 Normal >=60 [facility] Comment on above: Performed By: #### B MP #### [facility] [address] [place] [address] Dr. Rocío Cabrera EGFR-NON AF STATELESS >60 Normal >=60 [facility] Comment on above: Performed By: #### B MP #### [facility] [address] [address] [address] Rocío Cabrera Glucose [Mass/Vol] 110 mg/dL Critically high 74-106 [facility] Comment on above: Performed By: #### B MP #### [facility] [address] [address] [address] Rocío Cabrera Potassium [Moles/Vol] 3.8 mmol/L Normal 3.5-5.1 [facility] Comment on above: Performed By: #### B MP #### [facility] [address] [address] [address] Rocío Cabrera Sodium [Moles/Vol] 132 mmol/L Critically low 136-145 Th [facility] Comment on above: Performed By: #### B MP #### [facility] [address] [place] [address] Dr. Rocío Cabrera Urea nitrogen [Mass/Vol] 10.0 mg/dL Normal 7.0-18.0 [facility] Comment on above: Performed By: #### B MP #### [facility] [address] [place] [address] Dr. Rocío Cabrera Urea nitrogen/Creatinine [Mass ratio] 13.0 mg/mg Normal [facility] Comment on above: Performed By: #### B SALENA #### [facility] [address] [place], [place] [address] Dr. Rocío Cabrera SCREENING MAMMOGRAM W/GEORGIE, BILATERAL*on 12-02-2021 SCREENING MAMMOGRAM W/GEORGIE, BILATERAL* COMPARISON: Dating back to June 28, 2019 and October 02, 2016. TECHNIQUE: 2D and 3D Tomosynthesis of the right and left breasts was performed. FINDINGS: Breast composition demonstrates almost entirely fat. Overall appearance is stable. (1.5 cm right central upper breast focal asymmetry).No suspicious microcalcifications, dominant mass lesions, or distortion is present. IMPRESSION: BI-RADS 2- Benign Mammogram Board Certified Radiologist. Accredited by the ACR and FDA. MAMMOGRAPHY IS VERY IMPORTANT TO YOUR HEALTH. THE CURRENT STATELESS COLLEGE OF RADIOLOGY AND NATIONAL COMPREHENSIVE CANCER NETWORK GUIDELINES RECOMMENDS ANNUAL MAMMOGRAPHY BEGINNING AT AGE 40 THIS FACILITY USES A REMINDER SYSTEM TO ENSURE ALL PATIENTS RECEIVE REMINDER NOTIFICATIONS AT THE APPROPRIATE TIME BASED ON THE RECOMMENDATIONS OF THIS EXAM. Report reported and signed by Sage Pan on 12/03/2021 0713 Normal [facility] [place] Complete Blood Count with Au to Diffon 10-29-2021 Basophils (Bld) [#/Vol] 0.08 10*3/uL Normal 0.00-0.[address] [facility] Comment on above: Performed By: #### C MP, LIPD, CBCAD, VITD #### [facility] [address] [place], [place] [id number] Basophils/100 WBC (Bld) 0.6 % Normal [facility] [place] Comment on above: Performed By: #### C MP, LIPD, CBCAD, VITD #### [facility] [address] [place] [id number] Eosinophils (Bld) [#/Vol] 0.46 10*3/uL Normal 0.02-0.[address] [facility] Comment on above: Performed By: #### C MP, LIPD, CBCAD, VITD #### [facility] [address], [place] [id number] Eosinophils/100 WBC (Bld) 3.3 % Normal [facility] Comment on above: Performed By: #### C MP, LIPD, CBCAD, VITD #### [facility] [address], [place] [id number] Erythrocyte distribution width (RBC) [Ratio] 13.8 % Normal 11.0-15.0 [facility] Comment on above: Performed By: #### C MP, LIPD, CBCAD, VITD #### [facility] [address], [place] [id number] Hematocrit (Bld) [Volume fraction] 38.0 % Normal 35.0-47.0 [facility] Comment on above: Performed By: #### C MP, LIPD, CBCAD, VITD #### [facility] [address], [place] [id number] Hemoglobin (Bld) [Mass/Vol] 12.6 g/dL Normal 11.6-15.5 [facility] Comment on above: Performed By: #### C MP, LIPD, CBCAD, VITD #### [facility] [address], [place] [id number] Lymphocytes (Bld) [#/Vol] 2.7 10*3/uL Normal 0.9-3.9 [facility] Comment on above: Performed By: #### C MP, LIPD, CBCAD, VITD #### [facility] [address], [place] [id number] Lymphocytes/100 WBC (Bld) 19.2 % Normal [facility] Comment on above: Performed By: #### C MP, LIPD, CBCAD, VITD #### [facility] [address], [place] [id number] MCH (RBC) [Entitic mass] 29.0 pg Normal 27.0-33.0 [facility] Comment on above: Performed By: #### C MP, LIPD, CBCAD, VITD #### [facility] [address], [place] [id number] MCHC (RBC) [Mass/Vol] 33.2 g/dL Normal 32.0-36.0 [facility] Comment on above: Performed By: #### C MP, LIPD, CBCAD, VITD #### [facility] [address] [facility] [place] [id number] MCV (RBC) [Entitic vol] 88 fL Normal 80-[address] [facility] Comment on above: Performed By: #### C MP, LIPD, CBCAD, VITD #### [facility] [address], [place] [id number] Monocytes (Bld) [#/Vol] 0.9 10*3/uL Normal 0.2-0.[address] [facility] Comment on above: Performed By: #### C MP, LIPD, CBCAD, VITD #### [facility] [address] [facility] [place] [id number] Monocytes/100 WBC (Bld) 6.1 % Normal [facility] Comment on above: Performed By: #### C MP, LIPD, CBCAD, VITD #### [facility] [address] [facility] [place] [id number] Neutrophils (Bld) [#/Vol] 9.8 10*3/uL High 1.5-7.[address] [facility] Comment on above: Performed By: #### C MP, LIPD, CBCAD, VITD #### [facility] [address] [facility] [place] [id number] Neutrophils/100 WBC (Bld) 70.4 % Normal [facility] Comment on above: Performed By: #### C MP, LIPD, CBCAD, VITD #### [facility] [address], [place] [id number] Platelet mean volume (Bld) [Entitic vol] 10.00 fL Normal 7.50-12.[address] [facility] Comment on above: Performed By: #### C MP, LIPD, CBCAD, VITD #### [facility] [address] [facility] [place] [id number] Platelets (Bld) [#/Vol] 400 10*3/uL Normal 140-[address] [facility] Comment on above: Performed By: #### C MP, LIPD, CBCAD, VITD #### [facility] [address] [facility] [place] [id number] RBC (Bld) [#/Vol] 4.34 10*6/uL Normal 3.90-5.20 [facility] Comment on above: Performed By: #### C MP, LIPD, CBCAD, VITD #### [facility] [address], [place] [id number] RDW-SD 44.0 fL Normal 37.0-50.0 [facility] [place] Comment on above: Performed By: #### C MP, LIPD, CBCAD, VITD #### [facility] [address], [place] [id number] WBC (Bld) [#/Vol] 13.9 10*3/uL High 3.8-11.0 [facility] Comment on above: Performed By: #### C MP, LIPD, CBCAD, VITD #### [facility] [address], [place] [id number] Comprehensive Metabolic Pane henry 10-29-2021 Albumin [Mass/Vol] 4.3 g/dL Normal 3.6-5.1 [facility] Comment on above: Performed By: #### C MP, LIPD, CBCAD, VITD #### [facility] [address], [place] [id number] Albumin/Globulin [Mass ratio] 1.9 {ratio} Normal 1.0-2.5 [facility] [place] Comment on above: Performed By: #### C MP, LIPD, CBCAD, VITD #### [facility] [address], [place] [id number] ALP [Catalytic activity/Vol] 97 U/L Normal 35-119 [facility] [place] Comment on above: Performed By: #### C MP, LIPD, CBCAD, VITD #### [facility] [address], [place] [id number] ALT [Catalytic activity/Vol] 12 U/L Normal 6-33 [facility] [place] Comment on above: Result Comment: 08/07 Female reference range changed. Performed By: #### C MP, LIPD, CBCAD, VITD #### [facility] [address], [place] [id number] Anion gap [Moles/Vol] 19 mmol/L Normal 12-[address] [facility] Comment on above: Result Comment: Effmickey ctive 09/12/2019 reference range changed. Performed By: #### C MP, LIPD, CBCAD, VITD #### [facility] [address], [place] [id number] AST [Catalytic activity/Vol] 17 U/L Normal 9-[address] [facility] Comment on above: Performed By: #### C MP, LIPD, CBCAD, VITD #### [facility] [address], [place] [id number] BUN/CREA 22 Ratio Normal 6-22 [facility] [place] Comment on above: Performed By: #### C MP, LIPD, CBCAD, VITD #### [facility] [address], [place] [id number] Calcium [Mass/Vol] 10.0 mg/dL Normal 8.6-10.2 [facility] Comment on above: Performed By: #### C MP, LIPD, CBCAD, VITD #### [facility] [address], [place] [id number] Chloride [Moles/Vol] 97 mmol/L Low 98-107 [facility] [place] Comment on above: Performed By: #### C MP, LIPD, CBCAD, VITD #### [facility] [address], [place] [id number] CO2 [Moles/Vol] 25 mmol/L Normal 20-[address] [facility] Comment on above: Performed By: #### C MP, LIPD, CBCAD, VITD #### [facility] [address], [place] [id number] Creatinine [Mass/Vol] 0.8 mg/dL Normal 0.6-1.4 [facility] [place] Comment on above: Performed By: #### C MP, LIPD, CBCAD, VITD #### [facility] [address], [place] [id number] eGFRAA 88 mL/min/1.73m2 Normal >[address] [facility] Comment on above: Performed By: #### C MP, LIPD, CBCAD, VITD #### [facility] [address], [place] [id number] eGFRNAA 72 mL/min/1.73m2 Normal >60 [facility] Comment on above: Performed By: #### C MP, LIPD, CBCAD, VITD #### [facility] [address], [place] [id number] Globulin (S) [Mass/Vol] 2.3 g/dL Normal 1.9-3.7 [facility] Comment on above: Performed By: #### C MP, LIPD, CBCAD, VITD #### [facility] [address], [place] [id number] Glucose [Mass/Vol] 88 mg/dL Normal 65-99 [facility] Comment on above: Result Comment: For FASTING Glucose --- ADA reference ranges: Normal 65-99 mg/dl Prediabetes 100-125 Diabetes >/= 126 Performed By: #### C MP, LIPD, CBCAD, VITD #### [facility] [address], [place] [id number] Potassium [Moles/Vol] 4.3 mmol/L Normal 3.5-5.5 [facility] Comment on above: Performed By: #### C MP, LIPD, CBCAD, VITD #### [facility] [address], [place] [id number] Protein [Mass/Vol] 6.6 g/dL Normal 6.1-8.1 [facility] Comment on above: Performed By: #### C MP, LIPD, CBCAD, VITD #### [facility] [address], [place] [id number] Sodium [Moles/Vol] 136 mmol/L Normal 135-146 [facility] Comment on above: Performed By: #### C MP, LIPD, CBCAD, VITD #### [facility] [address], [place] [id number] TBIL <0.3 Normal [facility] Comment on above: Performed By: #### C MP, LIPD, CBCAD, VITD #### [facility] [address], [place] [id number] Urea nitrogen [Mass/Vol] 18 mg/dL Normal 7-25 [facility] Comment on above: Performed By: #### C MP, LIPD, CBCAD, VITD #### [facility] [address], [place] [id number] Lipid Panelon 10-29-2021 Cholesterol [Mass/Vol] 187 mg/dL Normal 125-[address] [facility] Specialist Comment on above: Result Comment: Low risk < 200mg/dL Borderline risk 201-239 mg/dl High risk > or equal to 240 Performed By: #### C MP, LIPD, CBCAD, VITD #### [facility] [address], [place] [id number] Cholesterol in HDL [Mass/Vol] 48 mg/dL Normal >[address] [facility] Specialist Comment on above: Result Comment: High Cardiovascular Risk HDL <40 mg/dL Low Cardiovascular Risk HDL > or equal to 60 mg/dl Performed By: #### C MP, LIPD, CBCAD, VITD #### [facility] [address], [place] [id number] Cholesterol in LDL [Mass/Vol] 118 mg/dL Normal [facility] Specialist Comment on above: Result Comment: LDL ATP III CLASSIFICATION LDL less than 100 mg/dl Optimal LDL 100-129 mg/dl Near or above optimal LDL 130-159 Borderline high LDL 160-189 High LDL greater than 189 mg/dl Very High Performed By: #### C MP, LIPD, CBCAD, VITD #### [facility] [address], [place] [id number] Cholesterol in VLDL [Mass/Vol] 21 mg/dL Normal [facility] Specialist Comment on above: Performed By: #### C MP, LIPD, CBCAD, VITD #### [facility] [address], [place] [id number] Cholesterol.total/C holesterol in HDL [Mass ratio] 4 {ratio} Normal [facility] Comment on above: Performed By: #### C MP, LIPD, CBCAD, VITD #### [facility] [address], [place] [id number] Triglyceride [Mass/Vol] 103 mg/dL Normal 30-150 [facility] Comment on above: Result Comment: TRIG ATPIII CLASSIFICATIONS TRIG less than 150 mg/dl Normal TRIG 150-199 mg/dl Borderline High TRIG 200-500 mg/dl High TRIG greather than 500 mg/dl Very High Performed By: #### C MP, LIPD, CBCAD, VITD #### [facility] [address] [place], [place] [id number] Q - CULTURE,URINE,ROUTINEon 10-29-2021 CULTURE, URINE, ROUTINE SEE NOTE Normal [facility] Comment on above: Order Comment: [facility] performed at: [facility] [facility], [address] [place] [address], [address] [place] [address], [address] [place] [address], Electroneurodiagnostic Technician: Bruce Mayorga MD [facility] Collection Date/Time: [facility] Results Received Date/Time: [facility] Reported Date/Time: Result Comment: CULT URE, URINE, ROUTINE Micro Number: [id number] Test Status: Final Specimen Source: Urine Specimen Quality: Adequate Result: Mixed genital aniyah isolated. These superficial bacteria are not indicative of a urinary tract infection. No further organism identification is warranted on this specimen. If clinically indicated, recollect clean-catch, mid-stream urine and transfer immediately to Urine Culture Transport Tube. Performed By: #### 8 [id number], [id number] #### [facility] [address] [place] [address] Q - URINALYSIS WITH REFLEX T O MICROSCOPICon 10-29-2021 Appearance (U) CLEAR Normal CLEAR [facility] Specialist Comment on above: Order Comment: [facility] performed at: [facility], [address] [place] [address], [address] [place] [address], [id number], Electroneurodiagnostic Technician: Bruce Mayorga MD [facility] Date/Time: [facility] Results Received Date/Time: [facility] Reported Date/Time: Performed By: #### 8 [id number], [id number] #### [facility] [address] [place] [address] Bilirubin Ql (U) Negative Normal NEGATIVE [facility] Comment on above: Order Comment: [facility] performed at: [facility], [address] [place] [address], [address] [place] [address], [address] [place] [address], Electroneurodiagnostic Technician: Bruce Mayorga MD [facility] Date/Time: [facility] Results Received Date/Time: [facility] Reported Date/Time: Performed By: #### 8 [id number], [id number] #### [facility] [address] [place] [address] Color (U) YELLOW Normal YELLOW [facility] Comment on above: Order Comment: [facility] performed at: [employer] [employer] [facility], [address] , [address] [place] [address], [address] [place] [address], Electroneurodiagnostic Technician: Bruce Mayorga MD [facility] Date/Time: [facility] Results Received Date/Time: [facility] Reported Date/Time: Performed By: #### 8 [id number], [id number] #### [facility] [address] [place] [address] Glucose Ql (U) Negative Normal NEGATIVE [facility] Comment on above: Order Comment: [facility] performed at: [employer], [employer] [facility], [address] , [address] [place] [address], [address] [place] [address], Electroneurodiagnostic Technician: Bruce Mayorga MD [facility] Date/Time: [facility] Results Received Date/Time: [facility] Reported Date/Time: Performed By: #### 8 [id number], [id number] #### [facility] [address] [place] [address] Ketones Ql (U) Negative Normal NEGATIVE [facility] Comment on above: Order Comment: [facility] performed at: [employer] [employer] [facility], [address] , [address] [place] [address], [address] [place] [address], Electroneurodiagnostic Technician: Bruce Mayorga MD [facility] Date/Time: [facility] Results Received Date/Time: [facility] Reported Date/Time: Performed By: #### 8 [id number], [id number] #### [facility] [address] [place] [address] Leukocyte esterase Test strip Ql (U) Negative Normal NEGATIVE [facility] Comment on above: Order Comment: [facility] performed at: [employer], [employer] [facility], [address] [place] [address], [address] [place] [address], [address] [place] [address], Electroneurodiagnostic Technician: Bruce Mayorga MD [facility] Date/Time: [facility] Results Received Date/Time: [facility] Reported Date/Time: Performed By: #### 8 [id number], [id number] #### [facility] [address] [place] [address] Nitrite Ql (U) Negative Normal NEGATIVE [facility] Specialist Comment on above: Order Comment: [facility] performed at: [employer], [employer] [facility], [address] [place] [address], [address] [place] [address], [address] [place] [address], Electroneurodiagnostic Technician: Bruce Mayorga MD [facility] Date/Time: [facility] Results Received Date/Time: [facility] Reported Date/Time: Performed By: #### 8 [id number], [id number] #### [facility] [address] [place] [address] OCCULT BLOOD Negative Normal NEGATIVE [facility] Comment on above: Order Comment: [facility] performed at: [employer], [employer] [facility], [address] [place] [address], [address] [place] [address], [address] [place] [address], Electroneurodiagnostic Technician: Bruce Mayorga MD [facility] Date/Time: [facility] Results Received Date/Time: [facility] Reported Date/Time: Performed By: #### 8 [id number], [id number] #### [facility] [address] [place] [address] pH (U) 6.5 [pH] Normal 5.0-8.0 [facility] Comment on above: Order Comment: [facility] performed at: [employer], [employer] [facility], [address] [place] [address] Rd, [address] [place] [address], [address] [place] [address], Electroneurodiagnostic Technician: Bruce Mayorga MD [facility] Date/Time: [facility] Results Received Date/Time: [facility] Reported Date/Time: Performed By: #### 8 [id number], [id number] #### [facility] [address] [place] [address] Protein Ql (U) Negative Normal NEGATIVE [facility] Specialist Comment on above: Order Comment: [facility] performed at: [employer], [employer] [facility], [address] [place] [address], [address] [place] [address], [address] [place] [address], Electroneurodiagnostic Technician: Bruce Mayorga MD [facility] Date/Time: [facility] Results Received Date/Time: [facility] Reported Date/Time: Performed By: #### 8 [id number], [id number] #### [facility] [address] [place] [address] Specific gravity (U) [Rel density] 1.005 Normal 1.001-1.035 [facility] Comment on above: Order Comment: [facility] performed at: [employer], [employer] [facility], [address] [place] [address], [address] [place] [address], [address] [place] [address], Electroneurodiagnostic Technician: Bruce Mayorga MD [facility] Date/Time: [facility] Results Received Date/Time: [facility] Reported Date/Time: Performed By: #### 8 [id number], [id number] #### [facility] [address] [place] [address] Vitamin D 25-OHon 10-29-2021 VIT D 25 OH 46 ng/ml Normal >29 [facility] Comment on above: Result Comment: [place] min D Status Deficiency <20 ng/mL Insufficiency 20-29 ng/mL Optimal 30-100 ng/mL Possible Toxicity >=150 ng/mL Performed By: #### C MP, LIPD, CBCAD, VITD #### [facility] [address] [place], [place] [id number] XR Chest 2 Views*on 10-29-19 XR Chest 2 Views* FINDINGS: Comparison made with prior exam of December 19, 2020. Mild diffuse interstitial prominence, unchanged. No significant parenchymal consolidation, alveolar infiltrates, pulmonary edema, or pleural effusion. No lymphadenopathy. Small hilar calcified granulomas. Within normal limits cardiac silhouette size IMPRESSION: Minimal change, mild interstitial prominence, no focal infiltrates or consolidation. If symptoms persist following appropriate medical management, pulmonary consultation may be of assistance. Report reported and signed by Sage Pan on 10/29/2021 0955 Normal [facility] [employer] Vital Signs Date Time Vital Sign Value Performing Clinician Facility 08-13-2023 08:20-0500 Body height 156.97 cm [employer] Other [employer] [employer] Other 08-13-2023 08:20-0500 Body mass index (BMI) [Ratio] 39.57 kg/m2 [employer] Other [facility] Other 08-13-2023 08:20-0500 Body weight 97.52 kg [employer] Other [facility] Other 08-13-2023 08:20-0500 Respiratory rate 18 /min [employer] Other [facility] Other 08-13-2023 08:20-0500 SaO2% (BldA) [Mass fraction] 98 % [employer] Other [facility] Other 06-18-2023 08:20-0400 Body height 156.97 cm [employer] Other [facility] Other 06-18-2023 08:20-0400 Body mass index (BMI) [Ratio] 36.45 kg/m2 [employer] Other [facility] Other 06-18-2023 08:20-0400 Body weight 89.81 kg Linda Dunbar Other [facility] [employer] Other Encounters Encounter Date Encounter Type Care Provider Facility Start: 09-14-2023 End: 09-14-2023 ambulatory Hossein Ivey Facility:[facility] Start: 09-14-2023 End: 09-14-2023 ambulatory MD Rosemarie Ojeda Work Phone: [facility] Work Phone: Start: 09-14-2023 End: 09-14-2023 Patient encounter procedure MD Rosemarie Ojeda Work Phone: [facility] [address] Work Phone: Start: 08-26-2023 End: 08-27-2023 ambulatory DEVIKA LIRA Not Available Start: 08-24-2023 End: 08-25-2023 ambulatory Nancy Barrera MD Facility: [facility] Start: 08-13-2023 End: 08-13-2023 ambulatory Linda Dunbar Other [facility] Other Start: 08-13-2023 Office outpatient visit 25 minutes Linda ABDULLAHI [facility] Start: 08-10-2023 End: 08-11-2023 ambulatory Nancy Barrera MD Facility: [facility] Start: 08-06-2023 End: 08-06-2023 ambulatory ROSEMARIE OJEDA Not Available Start: 07-13-2023 End: 07-14-2023 ambulatory Nancy Barrera MD Facility: [facility] Start: 07-06-2023 End: 07-06-2023 ambulatory Lidna Dunbar Other [facility] Other Start: 07-06-2023 Telephone encounter Linda ABDULLAHI [facility] Start: 06-18-2023 Office outpatient ne w 45 minutes Linda ABDULLAHI [facility] Start: 06-18-2023 End: 06-18-2023 ambulatory Linda Dunbar Facility:[facility] Start: 06-18-2023 End: 06-18-2023 ambulatory MD Rosemarie Ojeda Work Phone: [facility] Work Phone: Start: 06-18-2023 End: 06-18-2023 Patient encounter procedure MD Rosemarie Ojeda Work Phone: [facility] [address] [place] Work Phone: Start: 01-14-2023 End: 01-14-2023 ambulatory CRISTINO NANCY Facility:[facility] Procedures Date Procedure Procedure Detail Performing Clinician Start: 06-18-2023 X-ray of lumbar spin e, six views including bending views MD Rosemarie Ojeda Work Phone: Plan of Treatment Date Care Activity Detail Author Start: 09-14-2023 [facility] Immunizations Immunization Date Immunization Notes Care Provider Fa cility 06-28-2019 influenza, injectable,quadrivalen t, preservative free, pediatric Linda Status Overload Other [employer] Other 04-20-2012 tetanus toxoid, reduced diphtheria toxoid, and acellular pertussis vaccine, adsorbed [employer] Other [facility] Other Payers Date Payer Category Payer Self-pay 2022 Unknown 1960 Unknown [id number] 1960 Unknown [id number] 2.16. [id number] 1960 Unknown [id number] 2.16. [id number] 1960 Unknown [id number] 2.16. [id number] 1960 Unknown [id number] [id number] 1960 Unknown [id number] [id number] 1960 Unknown [id number] 2.16.840 [id number] 1959 Unknown [id number] Unknown [employer] [id number] Unknown [id number] 2.16.8 [id number] Unknown [id number] 2.16.8 [id number] Social History Date Type Detail Facility Tobacco smoking status ILIS Unknown if ever smoked [facility] Work Phone: Start: 1960 Sex Assigned At Female F [facility] Sex Assigned At Sex Assigned At Bir th [facility] [employer] Other Evaluation note 08-13-2023 Note Date & Type Note Facility 08-13-2023 Evaluation note Encounter Date Diagnosis Assessment Notes Aug, Lumbar radiculopathy (ICD-10 - M54.16) Reviewed the MRI of the lumbar spine from 03/27/22 which shows right L4-5 and L5-S1 lateral recess and neuroforaminal stenosis with posterior disc fragment at the L4 vertebral body. Severe asymmetrical disc space loss within the concavity of the curvature left L3-4 with corresponding arthritic endplate changes. L4-L5 broad disc base bulge within the right neuroforaminal with an annular tear contributing to moderate right and mid neuroforaminal stenosis which is likely consistent with the patient's radicular symptoms. Patient was discharged from PT 08/05/23. Pain management with Dr. Mejia had injections into the L4-L5 right. Pharmacological management will continue with current medications as prescribed. Will order lidocaine patch, patch. Patient has significant smoking history of 1 pack/day for 45 years. Patient has quit for 2 months and has put on weight, discussion of weight managment referal and denies at this time. DEXA scan ordered and pending to determine bone quality. Follow-up in 12 weeks for surgical consult with Dr Santana. Discussion of conservative therapy in which patient has had relief of pain yesterday for one day after pain managment injection. Patient states does not want to go out of town for surgery consult at this time. Will continue with Pain Management and follow up in [address] Santana for surgical consult. Aug, Lumbar stenosis with neurogenic claudication (ICD-10 - M48.062) [facility] [employer] Other Evaluation note 06-18-2023 Note Date & Type Note Facility 06-18-2023 Evaluation note Encounter Date Diagnosis Assessment Notes Jun, Lumbar stenosis with neurogenic claudication (ICD-10 - M48.062) independently reviewed the MRI of the lumbar spine from 03/27/22, [id number] with patient and which shows right L4-5 and L5-S1 lateral recess and neuroforaminal stenosis with posterior disc fragment at the L4 vertebral body. Severe asymmetrical disc space loss within the concavity of the curvature left L3-4 with corresponding arthritic endplate changes. L4-L5 broad disc base bulge within the right neuroforaminal with an annular tear contributing to moderate right and mid neuroforaminal stenosis which is likely consistent with the patient's radicular symptoms. Will get release of information of the physical therapy notes from [facility] for continuity of care. WIll refer to for continuation of PT for strengthing and conditioning. Will refer to pain management Dr. Groves to discuss steroid injections into the L4-L5 right. Pharmacological management will continue with current medications as prescribed. Will order lidocaine patch, patch. Patient has significant smoking history of 1 pack/day for 45 years. Patient is currently on smoking cessation program with quit now. Will order DEXA scan to determine bone quality. Follow-up in 8 weeks. Medical decision making shows a new problem to me with further workup planned or suggested with the potential for extensive treatment options that were considered with the most applicable given this patient's situation as noted above. Treatment options considered include a combination of physical therapy approaches, pharmacologic management, and interventional procedures. Those most applicable to the patient were discussed at this time. Risk of complications and/or morbidity and mortality is high given that acute and chronic pain poses a threat to life and bodily function if undertreated, poorly treated or with failure to maintain adequate treatment and timely follow up. Given the serious and fluctuating nature of pain with extensive consideration for whenever pain changes, there always remains the possibility of prolonged functional impairment requiring constant patient reassessment and high-level medical decision making. The amount and complexity of data reviewed is high given that patient labs, radiology reports, and other test were obtained, reviewed and summarized as applicable from the physician portal and/or outside medical records. Pertinent positive and negative findings were considered in medical decision-making. Jun, Lumbar radiculopathy, right (ICD-10 - M54.16) Jun, Asymptomatic menopausal state (ICD-10 - Z78.0) [facility] Other Clinical Note 03-27-2022 Note Date & Type Note Facility 03-27-2022 Note PROCEDURE: [employer] HDXT 1.5. Sagittal T1, T2, STIR and axial T1 and T2 contiguous and cone down images through the lumbar spine were performed without contrast administration. Comparison is made with the prior examination of February 19, 2021. FINDINGS: Nomenclature will include lumbarization of S1. Mild mid lumbar dextroscoliosis, severe asymmetric disc space loss within the concavity of the curvature (left L3/4) with corresponding arthritic end plate signal intensity changes. No vertebral body or posterior element fracture. No significant soft tissue inflammation. 1 mm spinal canal visualized throughout the distal thoracic region approaching the conus medullaris. No underlying mass. Normal filum terminale. T11/12: Mild disc space loss. Right neural foraminal zone disc bulging. Minimal stenosis. T12/L1: Normal disc volume. Minimal central disc bulging. No disc herniation, spinal canal or neural foraminal stenosis. L1/2 - L2/3: Normal. L3/4: Severe asymmetric (left) disc space loss corresponds with the concavity of the curvature. Asymmetric facet arthropathy, small amount of facet fluid. Disc bulging into the left neural foraminal zone in conjunction with facet arthropathy and scoliotic curvature contributes to mild to moderate mid neural foraminal stenosis. No spinal canal or right neural foraminal stenosis. L4/5: Minimal disc space loss. Broad base disc bulging within the right neural foraminal zone with annular tear contributes to moderate right mid and exit neural foraminal stenosis. 6 x 8 x 10 mm disc herniation occupies the right lateral recess posterior to the L4 vertebral body (appearance of which suggests a free disc fragment likely arising from the right L4/5 disc). Severe right lateral recess stenosis with extension into the right entry neural foraminal zone. L5/S1: Severe disc space loss. Posterior disc osteophyte complex, ligamentum flavum hypertrophy and facet arthropathy contributes to mild left and moderate to severe right neural foraminal stenosis. IMPRESSION: 1. Multilevel right L4/5 and L5/S1 lateral recess and neural foraminal stenosis (possible disc fragment posterior to the L4 vertebral body). 2. Visualization of the central spinal canal within the distal thoracic region, indeterminate etiology. As clinically indicated, thoracic MRI may be of assistance to evaluate for additional abnormalities throughout the cervical/thoracic spinal cord. Report reported and signed by Sage Pan on 03/31/2022 1249 [facility] [employer] Evaluation note Note Date & Type Note Facility Evaluation note No assessment information [facility] Work Phone: Evaluation note Note Date & Type Note Facility Evaluation note No Information [facility] [employer] Other History general Narrative - Reported Note Date & Type Note Facility History general Narrative - Reported Type Medical History Depression Medical History Arthritis Medical History Hypertension Medical History Obesity Medical History Right Elbow Tendonitis Medical History MRSA Medical History Fibromyalgia Medical History anemia Medical History Asthma Medical History migraine headache Medical History anxiety Surgical History Procedure: section 1993 Surgical History procedure: section 1983 Surgical History Cholecystectomy 2006 Surgical History tendon surgery right elbow 2001 Surgical History I&D right arm for MRSA 2011 Surgical History hysteroscopy 2002 Hospitalization History see surgical history Hospitalization History patient has nevmickey r been hospitalized for mental health Hospitalization History cardiac, ICU 2012 [facility] Other Reason for visit Narrative Note Date & Type Note Facility Reason for visit Narrative Pain Medicine Referral Update [facility] [employer] Other Summary Purpose Family History No Family History Records FoundNo Family History Records FoundNo Family History Records FoundNo Family History Records FoundNo Family History Records Found Advance Directives No Advanced Directives Records Found Advance Directive Response Recorded Date/ Time Advance Directives No June 18, 2023 7:03am Advance Directive Response Recorded Date/ Time Advance Directives No June 18, 2023 6:03am Chief Complaint and Reason for Visit Chief Complaint m54.50 Reason for Referral Reason EVALUATE AND TREAT Diagnosis 1 Lumbar stenosis with neurogenic claudication (M48.062) Referral Organization [facility] urosurgery Referring Provider First Name Linda Referring Provider Last Name Dunbar Referring Provider Specialty Nurse Pract itioner Referred Organization [facility] Pain Managemen t Referred Provider Jona Robles Referred Address [address],[place] [address] ,[place], [place],[address] Referred Provider Specialty Pain Medicin e Referral Priority Routine General Notes Nisreen Angel 023 02:26:11 PM >Received today and sent P2P Reason EVALUATE AND TREAT Diagnosis 1 Lumbar stenosis with neurogenic claudication (M48.062) Referral Organization [facility] urosurger Referring Provider First Name Linda Referring Provider Last Name Dunbar Referring Provider Specialty Nurse Pract itioner Referred Organization [facility] Referred Address [address] [facility] [address] [facility],[place], [place],[address] Referred Provider Specialty Physical The rapist Referral Priority Routine Additional Source Comments INFORMATION SOURCE (unrecogn ized section and content) DATE CREATED AUTHOR 04/01/2022 [facility] dical Specialist DATE CREATED AUTHOR AUTHOR'S ORGANIZ ATION 01/17/2023 [facility] DATE CREATED AUTHOR AUTHOR'S ORGANIZ ATION 08/28/2023 [facility] DATE CREATED AUTHOR AUTHOR'S ORGANIZ ATION 08/30/2023 [facility] dical Specialists EPIC DATE CREATED AUTHOR AUTHOR'S ORGANIZ ATION 09/19/2023 [facility] Care Teams (unrecognized sec tion and content) Team Status: Active Member Role Status Saeed Ojeda MD Primary Care Provider Active Team Status: Inactive Member Role Status Dates FELECIA Sylvester Attending Provider Active Rosemarie Ojeda MD Primary Care Provider Active Team Status: Inactive Member Role Status Dates Rosemarie Ojeda MD Primary Care Provider Active Hossein Ivey MD Attending Provider Active Goals (unrecognized section and content) Goals may be documented in a n alternate sectionNo InformationNo InformationNo InformationGoals may be documented in an alternate section REASON FOR VISIT (unrecogniz ed section and content) referred by Dr. Ojeda lumbar stenosis w/neurogenic claudicationFOLLOW UP FOR RECORDS PERTAINING TO PATIENTS WHO ARE OR HAVE BEEN ENROLLED IN A CHEMICAL DEPENDENCY/SUBSTANCEABUSE PROGRAM, SOME INFORMATION MAY BE OMITTED. This clinical summary was aggregated from multiple sources. Caution should be exercised in using it in the provision of clinical care. This summary normalizes information from multiple sources, and as a consequence, information in this document may materially change the coding, format and clinical context of patient data. In addition, data may be omitted in some cases. CLINICAL DECISIONS SHOULD BE BASED ON THE PRIMARY CLINICAL RECORDS. [facility] [employer] [facility]. provides no warranty or guarantee of the accuracy or completeness of information in this document.
--- NOTE | 2023-10-04 20:21 | ECG_ITS ---
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
--- NOTE | 2023-10-04 20:21 | CT_ITS ---
[address] [address] Patient Name: ANALIA SANCHEZ MRN: [id number] date: 1960 Sex: F Assigned Patient Location: ER Current Patient Location: Accession/Order Number: [id number] Exam Date: 10/04/2023 21:41 Report Date: 10/04/2023 22:36 At the request of: BREE FORDE Procedure: CT angio head EXAM: CT angio head, CT angio neck HISTORY : Headache and weakness. COMPARISON: CT head from 10/04/2023. TECHNIQUE: Axial images were obtained from the aortic arch through [place] of Ca following the intravenous administration of contrast. Sagittal and coronal reformations were provided. Three-dimensional volume rendered reformations were also created at an independent workstation and submitted. All carotid stenoses were measured utilizing NASCET criteria. Dose reduction techniques were achieved by using automated exposure control and/or adjustment of mA and/or kV according to patient size and/or use of iterative reconstruction technique FINDINGS: CTA NECK: No flow limiting stenosis at the origin of the great vessels. The subclavian and right axillary arteries are widely patent. The left axillary artery is poorly assessed due to artifact from dense injected intravenous contrast. There is plaque and calcification in the region of the carotid bulbs. Mild narrowing of the proximal right cervical internal carotid artery is noted. The degree of narrowing in this location is not hemodynamically significant (stenosis < 50%). No other region of significant extracranial carotid narrowing, dissection or evidence of carotid occlusion.Tortuosity of the distal cervical internal carotid arteries is noted. The vertebral arteries are codominant. Both vertebral arteries are patent at their origins and throughout their course within the neck. CTA HEAD: No flow limiting intracranial arterial stenosis or evidence of large vessel occlusion. There is no evidence of an intracranial aneurysm. The dural sinuses are opacified with intravascular contrast. CT/CT angio head IMPRESSION: 1. No flow limiting arterial stenosis within the neck. 2. No evidence of intracranial large vessel occlusion. Electronically authenticated by: AURELIO QUIÑONES Date: 10/04/2023 22:36
--- NOTE | 2023-10-04 20:21 | CT_ITS ---
[address] [address] Patient Name: ANALIA SANCHEZ MRN: [id number] date: 1960 Sex: F Assigned Patient Location: ER Current Patient Location: Accession/Order Number: [id number] Exam Date: 10/04/2023 21:41 Report Date: 10/04/2023 22:36 At the request of: BREE FORDE Procedure: CT angio neck EXAM: CT angio head, CT angio neck HISTORY : Headache and weakness. COMPARISON: CT head from 10/04/2023. TECHNIQUE: Axial images were obtained from the aortic arch through [place] of Ca following the intravenous administration of contrast. Sagittal and coronal reformations were provided. Three-dimensional volume rendered reformations were also created at an independent workstation and submitted. All carotid stenoses were measured utilizing NASCET criteria. Dose reduction techniques were achieved by using automated exposure control and/or adjustment of mA and/or kV according to patient size and/or use of iterative reconstruction technique FINDINGS: CTA NECK: No flow limiting stenosis at the origin of the great vessels. The subclavian and right axillary arteries are widely patent. The left axillary artery is poorly assessed due to artifact from dense injected intravenous contrast. There is plaque and calcification in the region of the carotid bulbs. Mild narrowing of the proximal right cervical internal carotid artery is noted. The degree of narrowing in this location is not hemodynamically significant (stenosis < 50%). No other region of significant extracranial carotid narrowing, dissection or evidence of carotid occlusion.Tortuosity of the distal cervical internal carotid arteries is noted. The vertebral arteries are codominant. Both vertebral arteries are patent at their origins and throughout their course within the neck. CTA HEAD: No flow limiting intracranial arterial stenosis or evidence of large vessel occlusion. There is no evidence of an intracranial aneurysm. The dural sinuses are opacified with intravascular contrast. CT/CT angio neck IMPRESSION: 1. No flow limiting arterial stenosis within the neck. 2. No evidence of intracranial large vessel occlusion. Electronically authenticated by: AURELIO QUIÑONES Date: 10/04/2023 22:36
--- NOTE | 2023-10-04 20:21 | XR_ITS ---
The [address] [address] Patient Name: ANALIA SANCHEZ MRN: [id number] date: 1960 Sex: F Assigned Patient Location: ED.MAIN Current Patient Location: ER Accession/Order Number: [id number] Exam Date: 10/04/2023 20:30 Report Date: 10/04/2023 21:44 At the request of: BREE FORDE Procedure: XR chest 1V EXAM: XR chest 1V TECHNIQUE: Single AP view chest HISTORY: Dizziness COMPARISON: None. FINDINGS: The heart and mediastinum are unremarkable. The lung avila are clear of any acute infiltrate, effusion or mass. No acute bony abnormality. XR/XR chest 1V IMPRESSION: No acute pulmonary disease. Electronically authenticated by: GAGE MAXWELL Date: 10/04/2023 21:44
--- NOTE | 2023-10-04 20:21 | CT_ITS ---
The [address] [address] Patient Name: ANALIA SANCHEZ MRN: [id number] date: 1960 Sex: F Assigned Patient Location: ED.MAIN Current Patient Location: Accession/Order Number: [id number] Exam Date: 10/04/2023 20:30 Report Date: 10/04/2023 21:45 At the request of: BREE FORDE Procedure: CT head/brain wo con EXAM: CT head/brain wo con HISTORY: Weakness, headache COMPARISON: None. TECHNIQUE: Axial CT scans through the head were obtained without IV contrast administration. Dose reduction techniques were achieved by using: automated exposure control and/or adjustment of mA and /or kV according to patient size and/or use of iterative reconstruction technique. FINDINGS: There is no evidence of acute intracranial hemorrhage or abnormal extra-axial fluid collection. No mass effect or midline shift is seen. There is no evidence of large acute territorial infarction. There is no hydrocephalus. Mild enlarged cerebral sulci, consistent with age appropriate cerebral atrophy. To the limit of CT, the posterior fossa appears unremarkable. No definite acute fracture is identified. Soft tissues are unremarkable. The visualized orbits show no abnormality. The visualized paranasal sinuses show no air-fluid level. Mastoid air cells are clear. CT/CT head/brain wo con IMPRESSION: No CT evidence of acute intracranial abnormality. Electronically authenticated by: ISIDORO HURTADOU Date: 10/04/2023 21:45
--- NOTE | 2023-10-04 20:23 | ED.NEUROSD1 ---
Documented by User: MARNIE Mcdaniel 10/04/23 20:39 HPI - Neuro Symptoms/Deficit General Chief Complaint: Neuro Symptoms/Deficit Stated Complaint: Feeling Funny Time Seen by Provider: 10/04/23 20:16 Source: patient Mode of arrival: ambulance History of Present Illness HPI Narrative: Patient is a 63-year-old female who presents to the emergency department by ambulance for the evaluation of multiple complaints. Patient states around 6 hours ago, she started feeling weak with a global headache. She states she felt like she was having trouble with her speech but had no unilateral weakness. She states she felt weak in both arms and legs. She states she has had ongoing intermittent issues with numbness and tingling to the hands. She has been having frequent headaches over the last week. She denies visual changes, chest pain, shortness of breath, fevers, chills, flulike illness. She states her symptoms resolved 10 minutes ago however the headache persists. She takes medication for high blood pressure at home. No medications were given prior to arrival. No falls or injuries. Related Data Home Medications Medication Instructions Recorded Confirmed acetaminophen 500 mg tablet 1,000 mg PO Q6H PRN pain 08/04/23 10/04/23 (Tylenol Extra Strength) duloxetine 60 mg capsule,delayed 120 mg PO QAM 08/04/23 10/04/23 release felodipine 5 mg tablet,extended 5 mg PO DAILY 08/04/23 10/04/23 release 24 hr fluticasone fur. 100 mcg-umeclid 1 inh inhalation DAILY 08/04/23 10/04/23 62.5 mcg-vilant 25 mcg inhalat.powder (Trelegy Ellipta) ibuprofen 800 mg tablet 800 mg PO Q6H 08/04/23 10/04/23 losartan 100 mg tablet 100 mg PO DAILY 08/04/23 10/04/23 pantoprazole 40 mg tablet,delayed 40 mg PO DAILY 08/04/23 10/04/23 release propranolol 10 mg tablet 10 mg PO BID 08/04/23 10/04/23 ropinirole 2 mg tablet 2 mg PO BEDTIME 08/04/23 10/04/23 tizanidine 4 mg tablet 4 mg PO BEDTIME 08/04/23 10/04/23 Allergies Allergy/AdvReac Type Severity Reaction Status Date / Time adhesive Allergy Verified 08/24/23 07:30 Review of Systems ROS Constitutional Denies: fever or chills Ears, nose, mouth, and throat Denies: throat pain or nasal congestion Cardiovascular Denies: chest pain Respiratory Denies: shortness of breath or cough Gastrointestinal Denies: nausea or vomiting Musculoskeletal Denies: back pain, neck pain, extremity pain or extremity swelling Integumentary/Breast Denies: rash Neurological Reports: headache, numbness in extremities, weakness in extremities and dizziness Endocrine Denies: excessive urination [facility] Medical History (Updated 10/04/23 @ 23:42 by Geovanni Gupta) MRSA (methicillin resistant Staphylococcus aureus) ?A49.02 - Methicillin resistant Staphylococcus aureus infection, unspecified site (ICD-10) Anemia ?D64.9 - Anemia, unspecified (ICD-10) Fibromyalgia ?M79.7 - Fibromyalgia (ICD-10) Carpal tunnel syndrome ?G56.00 - Carpal tunnel syndrome, unspecified upper limb (ICD-10) Anxiety ?F41.9 - Anxiety disorder, unspecified (ICD-10) Acid reflux ?K21.9 - Gastro-esophageal reflux disease without esophagitis (ICD-10) Sleep apnea ?G47.30 - Sleep apnea, unspecified (ICD-10) COPD (chronic obstructive pulmonary disease) ?J44.9 - Chronic obstructive pulmonary disease, unspecified (ICD-10) HTN (hypertension) ?I10 - Essential (primary) hypertension (ICD-10) Surgical History (Updated 08/04/23 @ 10:58 by Raina Dodson RN) History of elbow surgery ?Z98.890 - Other specified postprocedural states (ICD-10) Hx of cholecystectomy ?Z90.49 - Acquired absence of other specified parts of digestive tract (ICD-10) H/O section ?Z98.891 - History of uterine scar from previous surgery (ICD-10) Exam Narrative Exam Narrative: Gen.: Awake, alert, in no distress Head: Normocephalic, atraumatic ENT: Moist mucous membranes Respiratory: No respiratory distress, lungs clear bilaterally Cardio: Regular rate and rhythm Gastrointestinal: Abdomen is soft, nondistended and nontender to palpation Extremities: Moves extremities equally Psych: Normal mood and affect Neuro: No focal neuro deficit; Patient is awake, alert, talkative. She has no focal neurodeficits on exam or unilateral weakness. She has no facial drooping or slurred speech. She is A&O x 3. She has no photophobia. No meningismus. Skin: Warm, dry, intact Constitutional Vital Signs, click to edit/add: Last Vital Signs Temp 97.9 F 10/04/23 20:12 Pulse 91 H 10/04/23 21:50 Resp 18 10/04/23 21:50 BP 143/68 H 10/04/23 21:01 Pulse Ox 96 10/04/23 20:20 O2 Del Method Room Air 10/04/23 20:12 Course Vital Signs Vital signs: Vital Signs Temperature 97.9 F 10/04/23 20:12 Pulse Rate 94 H 10/04/23 20:12 Respiratory Rate 18 10/04/23 20:12 Blood Pressure 172/98 H 10/04/23 20:12 Pulse Oximetry 96 10/04/23 20:12 Oxygen Delivery Method Room Air 10/04/23 20:12 Temperature 97.9 F 10/04/23 20:12 Pulse Rate 91 H 10/04/23 21:50 Respiratory Rate 18 10/04/23 21:50 Blood Pressure 143/68 H 10/04/23 21:01 Pulse Oximetry 96 10/04/23 20:20 Oxygen Delivery Method Room Air 10/04/23 20:12 MDM - Neuro Symptoms/Deficit MDM Narrative Medical decision making narrative: 2038: Vital signs obtained, IV started with lab draw and the patient was ordered to have a CT of the brain as well as a CT angio of the brain and neck given her symptoms. Her headaches appear to be ongoing and she does have a history of chronic neck pain and back pain which may be accounting for some of the paresthesia that has also been ongoing for the patient. In the emergency department, she has no focal medical complaints other than the headache which was treated with IV fluids, Reglan, Benadryl. Full workup is pending and case is turned over to attending physician for disposition after results. Medical Records Attestation: I reviewed the patient's medical records. Lab Data Labs: Lab Results 10/04/23 Range/Units 20:40 WBC 9.9 (4.0-11.0) 10^3/uL RBC 4.24 (4.20-5.40) 10^6/uL Hgb 11.5 L (12.0-16.0) g/dL Hct 35.9 L (36.0-48.0) % MCV 84.7 (81.0-99.0) fL MCH 27.1 (26.7-34.0) pg MCHC 32.0 (29.9-35.2) g/dL RDW 12.7 (11.0-15.0) % Plt Count 453 H (150-450) 10^3/uL MPV 8.7 L (9.5-13.5) fL Neut % (Auto) 73.7 (43.0-75.0) % Lymph % (Auto) 13.8 L (20.5-60.0) % [place] % (Auto) 8.6 (1.7-12.0) % Eos % (Auto) 2.6 (0.9-7.0) % Baso % (Auto) 1.0 (0.2-2.0) % Neut # (Auto) 7.3 H (1.4-6.5) 10^3/uL Lymph # (Auto) 1.4 (1.2-3.8) 10^3/uL [place] # (Auto) 0.9 H (0.3-0.8) 10^3/uL Eos # (Auto) 0.3 (0.0-0.7) 10^3/uL Baso # (Auto) 0.1 (0.0-0.1) 10^3/uL Abs Immat Gran (auto) 0.03 (0.00-0.03) 10^3/uL Imm/Tot Granulo (auto) 0.3 (0.0-0.5) % PT 9.9 (9.0-11.6) sec INR 0.93 Sodium 132 L (136-145) mmol/L Potassium 4.0 (3.5-5.1) mmol/L Chloride 102 (98-107) mmol/L Carbon Dioxide 27.5 (21.0-32.0) mmol/L Anion Gap 6.5 BUN 19.0 H (7.0-18.0) mg/dL Creatinine 1.00 (0.55-1.02) mg/dL Est GFR ( Amer) >60 (>=60) Est GFR (Non-Af Amer) 56 L (>=60) BUN/Creatinine Ratio 19.0 Glucose 93 (74-106) mg/dL Calcium 9.1 (8.5-10.1) mg/dL Total Bilirubin 0.2 (0.2-1.0) mg/dL AST 13 L (15-37) U/L ALT 18 (14-59) U/L Alkaline Phosphatase 96 (46-116) U/L Troponin I High Sens 8.9 (4.0-51.3) pg/mL Total Protein 7.4 (6.4-8.2) g/dL Albumin 3.4 (3.4-5.0) g/dL Globulin 4.0 g/dL Albumin/Globulin Ratio 0.9 TSH 1.726 (0.358-3.740) uIU/mL Urine Color Lt. yellow (YELLOW) Urine Clarity Clear (CLEAR) Urine pH 6.5 (5.0-9.0) Ur Specific [place] 1.025 (1.005-1.025) Urine Protein 30 A (NEG/TRACE) mg/dL Urine Glucose (UA) Negative (NEGATIVE) mg/dL Urine Ketones Negative (NEGATIVE) mg/dL Urine Occult Blood Negative (NEGATIVE) Urine Nitrite Negative (NEGATIVE) Urine Bilirubin Negative (NEGATIVE) Urine Urobilinogen 0.2 (0.2-1.0) EU/dL Ur Leukocyte Esterase Trace A (NEGATIVE) Urine RBC 0-2 (0-2) #/HPF Urine WBC 2-5 A (NONE SEEN) #/HPF Ur Squamous Epith Cells Few A (NONE/RARE) #/LPF Ur Transition Epith Cell Rare A (NONE SEEN) #/LPF Urine Crystals None seen (None Seen) #/HPF Urine Bacteria Trace A (NONE SEEN) #/HPF Urine Casts Seen A (NONE SEEN) #/LPF Hyaline Casts Rare Urine Mucus None seen (NONE SEEN) Ur Culture Indicated? No Imaging Data CT head & neck; CXR: Radiologist's impression: ITS Impressions Chest X-Ray 10/04/23 20:21 IMPRESSION: No acute pulmonary disease. Electronically authenticated by: GAGE MAXWELL Date: 10/04/2023 21:[address] 10/04/23 20:21 IMPRESSION: No CT evidence of acute intracranial abnormality. Electronically authenticated by: ISIDORO REEDER Date: 10/04/2023 21:45 Head CTA 10/04/23 20:21 IMPRESSION: 1. No flow limiting arterial stenosis within the neck. 2. No evidence of intracranial large vessel occlusion. Electronically authenticated by: AURELIO QUIÑONES Date: 10/04/2023 22:36 Neck CTA 10/04/23 20:21 IMPRESSION: 1. No flow limiting arterial stenosis within the neck. 2. No evidence of intracranial large vessel occlusion. Electronically authenticated by: AURELIO QUIÑONES Date: 10/04/2023 22:36 ECG Data Attestation: I personally reviewed and interpreted this ECG as follows: (Sinus rhythm at a rate of 80, sinus arrhythmia with no acute ST elevation or ectopy. EKG reviewed by attending physician.) Discharge Plan Discharge Chief Complaint: Neuro Symptoms/Deficit Clinical Impression: Headache, Paresthesia Patient Disposition: Home, Self-Care Time of Disposition Decision: 23:42 Prescriptions / Home Meds: No Action Trelegy Ellipta 100-62.5-25 mcg blister with device 1 inh inhalation DAILY propranolol 10 mg tablet 10 mg PO BID pantoprazole 40 mg tablet,delayed release (DR/EC) 40 mg PO DAILY felodipine 5 mg tablet extended release 24 hr 5 mg PO DAILY losartan 100 mg tablet 100 mg PO DAILY duloxetine 60 mg capsule,delayed release(DR/EC) 120 mg PO QAM ropinirole 2 mg tablet 2 mg PO BEDTIME tizanidine 4 mg tablet 4 mg PO BEDTIME ibuprofen 800 mg tablet 800 mg PO Q6H acetaminophen [Tylenol Extra Strength] 500 mg tablet 1,000 mg PO Q6H PRN (Reason: pain) Instructions: Acute Headache (ED), Paresthesia (ED) Stand Alone Forms: Portal Instructions Referrals: ANA CHOI [Primary Care Provider] - 1 week Documented by User: Geovanni Gupta 10/04/23 23:42 HPI - Neuro Symptoms/Deficit General Chief Complaint: Neuro Symptoms/Deficit Stated Complaint: Feeling Funny Time Seen by Provider: 10/04/23 20:16 Related Data Home Medications Medication Instructions Recorded Confirmed acetaminophen 500 mg tablet 1,000 mg PO Q6H PRN pain 08/04/23 10/04/23 (Tylenol Extra Strength) duloxetine 60 mg capsule,delayed 120 mg PO QAM 08/04/23 10/04/23 release felodipine 5 mg tablet,extended 5 mg PO DAILY 08/04/23 10/04/23 release 24 hr fluticasone fur. 100 mcg-umeclid 1 inh inhalation DAILY 08/04/23 10/04/23 62.5 mcg-vilant 25 mcg inhalat.powder (Trelegy Ellipta) ibuprofen 800 mg tablet 800 mg PO Q6H 08/04/23 10/04/23 losartan 100 mg tablet 100 mg PO DAILY 08/04/23 10/04/23 pantoprazole 40 mg tablet,delayed 40 mg PO DAILY 08/04/23 10/04/23 release propranolol 10 mg tablet 10 mg PO BID 08/04/23 10/04/23 ropinirole 2 mg tablet 2 mg PO BEDTIME 08/04/23 10/04/23 tizanidine 4 mg tablet 4 mg PO BEDTIME 08/04/23 10/04/23 Allergies Allergy/AdvReac Type Severity Reaction Status Date / Time adhesive Allergy Verified 08/24/23 07:30 [facility] Medical History (Updated 10/04/23 @ 23:42 by Geovanni Gupta) MRSA (methicillin resistant Staphylococcus aureus) ?A49.02 - Methicillin resistant Staphylococcus aureus infection, unspecified site (ICD-10) Anemia ?D64.9 - Anemia, unspecified (ICD-10) Fibromyalgia ?M79.7 - Fibromyalgia (ICD-10) Carpal tunnel syndrome ?G56.00 - Carpal tunnel syndrome, unspecified upper limb (ICD-10) Anxiety ?F41.9 - Anxiety disorder, unspecified (ICD-10) Acid reflux ?K21.9 - Gastro-esophageal reflux disease without esophagitis (ICD-10) Sleep apnea ?G47.30 - Sleep apnea, unspecified (ICD-10) COPD (chronic obstructive pulmonary disease) ?J44.9 - Chronic obstructive pulmonary disease, unspecified (ICD-10) HTN (hypertension) ?I10 - Essential (primary) hypertension (ICD-10) Surgical History (Updated 08/04/23 @ 10:58 by Raina Dodson RN) History of elbow surgery ?Z98.890 - Other specified postprocedural states (ICD-10) Hx of cholecystectomy ?Z90.49 - Acquired absence of other specified parts of digestive tract (ICD-10) H/O section ?Z98.891 - History of uterine scar from previous surgery (ICD-10) Exam Constitutional Vital Signs, click to edit/add: Last Vital Signs Temp 97.9 F 10/04/23 20:12 Pulse 91 H 10/04/23 21:50 Resp 18 10/04/23 21:50 BP 143/68 H 10/04/23 21:01 Pulse Ox 96 10/04/23 20:20 O2 Del Method Room Air 10/04/23 20:12 Course Vital Signs Vital signs: Vital Signs Temperature 97.9 F 10/04/23 20:12 Pulse Rate 94 H 10/04/23 20:12 Respiratory Rate 18 10/04/23 20:12 Blood Pressure 172/98 H 10/04/23 20:12 Pulse Oximetry 96 10/04/23 20:12 Oxygen Delivery Method Room Air 10/04/23 20:12 Temperature 97.9 F 10/04/23 20:12 Pulse Rate 91 H 10/04/23 21:50 Respiratory Rate 18 10/04/23 21:50 Blood Pressure 143/68 H 10/04/23 21:01 Pulse Oximetry 96 10/04/23 20:20 Oxygen Delivery Method Room Air 10/04/23 20:12 MDM - Neuro Symptoms/Deficit Lab Data Attestation: I reviewed the patient's lab results. Labs: Lab Results 10/04/23 Range/Units 20:40 WBC 9.9 (4.0-11.0) 10^3/uL RBC 4.24 (4.20-5.40) 10^6/uL Hgb 11.5 L (12.0-16.0) g/dL Hct 35.9 L (36.0-48.0) % MCV 84.7 (81.0-99.0) fL MCH 27.1 (26.7-34.0) pg MCHC 32.0 (29.9-35.2) g/dL RDW 12.7 (11.0-15.0) % Plt Count 453 H (150-450) 10^3/uL MPV 8.7 L (9.5-13.5) fL Neut % (Auto) 73.7 (43.0-75.0) % Lymph % (Auto) 13.8 L (20.5-60.0) % [place] % (Auto) 8.6 (1.7-12.0) % Eos % (Auto) 2.6 (0.9-7.0) % Baso % (Auto) 1.0 (0.2-2.0) % Neut # (Auto) 7.3 H (1.4-6.5) 10^3/uL Lymph # (Auto) 1.4 (1.2-3.8) 10^3/uL [place] # (Auto) 0.9 H (0.3-0.8) 10^3/uL Eos # (Auto) 0.3 (0.0-0.7) 10^3/uL Baso # (Auto) 0.1 (0.0-0.1) 10^3/uL Abs Immat Gran (auto) 0.03 (0.00-0.03) 10^3/uL Imm/Tot Granulo (auto) 0.3 (0.0-0.5) % PT 9.9 (9.0-11.6) sec INR 0.93 Sodium 132 L (136-145) mmol/L Potassium 4.0 (3.5-5.1) mmol/L Chloride 102 (98-107) mmol/L Carbon Dioxide 27.5 (21.0-32.0) mmol/L Anion Gap 6.5 BUN 19.0 H (7.0-18.0) mg/dL Creatinine 1.00 (0.55-1.02) mg/dL Est GFR ( Amer) >60 (>=60) Est GFR (Non-Af Amer) 56 L (>=60) BUN/Creatinine Ratio 19.0 Glucose 93 (74-106) mg/dL Calcium 9.1 (8.5-10.1) mg/dL Total Bilirubin 0.2 (0.2-1.0) mg/dL AST 13 L (15-37) U/L ALT 18 (14-59) U/L Alkaline Phosphatase 96 (46-116) U/L Troponin I High Sens 8.9 (4.0-51.3) pg/mL Total Protein 7.4 (6.4-8.2) g/dL Albumin 3.4 (3.4-5.0) g/dL Globulin 4.0 g/dL Albumin/Globulin Ratio 0.9 TSH 1.726 (0.358-3.740) uIU/mL Urine Color Lt. yellow (YELLOW) Urine Clarity Clear (CLEAR) Urine pH 6.5 (5.0-9.0) Ur Specific [place] 1.025 (1.005-1.025) Urine Protein 30 A (NEG/TRACE) mg/dL Urine Glucose (UA) Negative (NEGATIVE) mg/dL Urine Ketones Negative (NEGATIVE) mg/dL Urine Occult Blood Negative (NEGATIVE) Urine Nitrite Negative (NEGATIVE) Urine Bilirubin Negative (NEGATIVE) Urine Urobilinogen 0.2 (0.2-1.0) EU/dL Ur Leukocyte Esterase Trace A (NEGATIVE) Urine RBC 0-2 (0-2) #/HPF Urine WBC 2-5 A (NONE SEEN) #/HPF Ur Squamous Epith Cells Few A (NONE/RARE) #/LPF Ur Transition Epith Cell Rare A (NONE SEEN) #/LPF Urine Crystals None seen (None Seen) #/HPF Urine Bacteria Trace A (NONE SEEN) #/HPF Urine Casts Seen A (NONE SEEN) #/LPF Hyaline Casts Rare Urine Mucus None seen (NONE SEEN) Ur Culture Indicated? No Imaging Data CT head & neck; CXR: Radiologist's impression: ITS Impressions Chest X-Ray 10/04/23 20:21 IMPRESSION: No acute pulmonary disease. Electronically authenticated by: GAGE MAXWELL Date: 10/04/2023 21:[address] 10/04/23 20:21 IMPRESSION: No CT evidence of acute intracranial abnormality. Electronically authenticated by: [facility] Date: 10/04/2023 21:45 Head CTA 10/04/23 20:21 IMPRESSION: 1. No flow limiting arterial stenosis within the neck. 2. No evidence of intracranial large vessel occlusion. Electronically authenticated by: AURELIO QUIÑONES Date: 10/04/2023 22:36 Neck CTA 10/04/23 20:21 IMPRESSION: 1. No flow limiting arterial stenosis within the neck. 2. No evidence of intracranial large vessel occlusion. Electronically authenticated by: AURELIO QUIÑONES Date: 10/04/2023 22:36 Discharge Plan Discharge Chief Complaint: Neuro Symptoms/Deficit Clinical Impression: Headache, Paresthesia Patient Disposition: Home, Self-Care Time of Disposition Decision: 23:42 Prescriptions / Home Meds: No Action Leonardlegallo Ellipta 100-62.5-25 mcg blister with device 1 inh inhalation DAILY propranolol 10 mg tablet 10 mg PO BID pantoprazole 40 mg tablet,delayed release (DR/EC) 40 mg PO DAILY felodipine 5 mg tablet extended release 24 hr 5 mg PO DAILY losartan 100 mg tablet 100 mg PO DAILY duloxetine 60 mg capsule,delayed release(DR/EC) 120 mg PO QAM ropinirole 2 mg tablet 2 mg PO BEDTIME tizanidine 4 mg tablet 4 mg PO BEDTIME ibuprofen 800 mg tablet 800 mg PO Q6H acetaminophen [Tylenol Extra Strength] 500 mg tablet 1,000 mg PO Q6H PRN (Reason: pain) Instructions: Acute Headache (ED), Paresthesia (ED) Stand Alone Forms: Portal Instructions Referrals: ANA CHOI [Primary Care Provider] - 1 week
--- NOTE | 2023-10-04 20:29 | PC.NURSE ---
Pt presents to ER via EMS for feeling funny in the head Pt states she began developing a headache around 2pm today and shortly after became feeling odd Pt describes numbness and tingling to bilateral hands and feet as well as difficulty getting out words Elsewise pt is unable to describe the way she was feeling Pt states this fuzzy feeling disappeared during transport to the hospital but she still has a slight headache When asked if pt has a history of migraines she replied It's hard to tell Pt states she called the on phone nurse for her insurance company who told her to call 911 and go to the ER Pt is A&Ox4 on arrival and answers all questions appropriately
[2023-10-04] MEDS: 0.9 % SODIUM CHLORIDE 1,000 ML 999 ML IV (20:47)
[2023-10-04] MEDS: METOCLOPRAMIDE HCL 10 MG/2 ML VIAL IVP (20:48)
[2023-10-04] MEDS: DIPHENHYDRAMINE HCL 50 MG/ML (1ML) VIAL 25 MG IV (20:48)
[2023-10-04 21:03] LABS: Basophils Absolute Auto 0.1 10^3/uL (0.0-0.1); Bilirubin Urine NEGATIVE (NEGATIVE); Blood Urine NEGATIVE (NEGATIVE); Clarity Urine CLEAR (CLEAR); Color Urine LT. YELLOW (YELLOW); Eosinophils Absolute Auto 0.3 10^3/uL (0.0-0.7); Eosinophils Percent Auto 2.6 % (0.9-7.0); Glucose Urine UA NEGATIVE (NEGATIVE); Hematocrit 35.9 % (36.0-48.0); Hemoglobin 11.5 g/dL (12.0-16.0); Immature Granulocytes Abs Auto 0.03 10^3/uL (0.00-0.03); Immature Granulocytes Pct Auto 0.3 % (0.0-0.5); Ketones Urine NEGATIVE (NEGATIVE); Leukocyte Esterase Urine TRACE (NEGATIVE); Lymphocytes Absolute Auto 1.4 10^3/uL (1.2-3.8); Lymphocytes Percent Auto 13.8 % (20.5-60.0); Mean Corpuscular Hemoglobin 27.1 pg (26.7-34.0); Mean Corpuscular Volume 84.7 fL (81.0-99.0); Mean Platelet Volume 8.7 fL (9.5-13.5); Monocytes Absolute Auto 0.9 10^3/uL (0.3-0.8); Monocytes Percent Auto 8.6 % (1.7-12.0); Neutrophils Absolute Auto 7.3 10^3/uL (1.4-6.5); Neutrophils Percent Auto 73.7 % (43.0-75.0); Nitrite Urine NEGATIVE (NEGATIVE); Platelet Count 453 10^3/uL (150-450); Protein Urine 30 mg/dL (NEG/TRACE); Red Blood Count 4.24 10^6/uL (4.20-5.40); Red Cell Distribution Width 12.7 % (11.0-15.0); Specific Gravity Urine 1.025 (1.005-1.025); Urobilinogen Urine 0.2 EU/dL (0.2-1.0); White Blood Count 9.9 10^3/uL (4.0-11.0); pH Urine 6.5 (5.0-9.0)
[2023-10-04 21:04] LABS: Urine Microscopic Indicated YES
[2023-10-04 21:15] LABS: Bacteria Urine TRACE #/HPF (NONE SEEN); Cast Seen? SEEN #/LPF (NONE SEEN); Crystals Seen? None Seen #/HPF (None Seen); Hyaline Casts Urine RARE; Mucus Urine NONE SEEN (NONE SEEN); RBC Urine 0-2 #/HPF (0-2); Squamous Epithelial Cell Urine FEW #/LPF (NONE/RARE); Transitional Epi Cells Urine RARE #/LPF (NONE SEEN); Urine Culture Indicated NO
[2023-10-04 21:24] LABS: INR 0.93; Prothrombin Time 9.9 sec (9.0-11.6)
[2023-10-04 21:26] LABS: Alanine Aminotransferase 18 U/L (14-59); Albumin Globulin Ratio 0.9; Albumin Level 3.4 g/dL (3.4-5.0); Alkaline Phosphatase 96 U/L (46-116); Anion Gap 6.5; Aspartate Amino Transferase 13 U/L (15-37); Bilirubin Total 0.2 mg/dL (0.2-1.0); Calcium 9.1 mg/dL (8.5-10.1); Carbon Dioxide 27.5 mmol/L (21.0-32.0); Chloride 102 mmol/L (98-107); Estimated GFR (African America >60 (>=60); Estimated GFR (Non-African Ame 56 (>=60); Glucose 93 mg/dL (74-106); Sodium 132 mmol/L (136-145); Thyroid Stimulating Hormone 1.726 uIU/mL (0.358-3.740); Total Protein 7.4 g/dL (6.4-8.2); Troponin I High Sensitivity 8.9 pg/mL (4.0-51.3)
== END 2023-10-04 23:56 | disposition home or self-care (01) ==
PROVIDERS: Physician Assistant; Emergency Provider Emergency Medicine; PCP Family Medicine
DX: R51.9 Headache, unspecified (principal); R20.2 Paresthesia of skin; M79.7 Fibromyalgia; F41.9 Anxiety disorder, unspecified; K21.9 Gastro-esophageal reflux disease without esophagitis; G47.30 Sleep apnea, unspecified; J44.9 Chronic obstructive pulmonary disease, unspecified; I10 Essential (primary) hypertension; Z90.49 Acquired absence of other specified parts of digestive tract; Z98.891 History of uterine scar from previous surgery; Z98.890 Other specified postprocedural states; Z79.899 Other long term (current) drug therapy; Z86.14 Personal history of Methicillin resistant Staphylococcus aureus infection
CPT/HCPCS: 36415; 70450; 70496; 70498; 71045; 80053; 81001; 84443; 84484; 85025; 85610; 93005; 96374; 96375; 99285; J1200; J2765; Q9967